=== PATIENT | female | born 1945 | race Caucasian/White ===

== ENCOUNTER → 2016-10-12 | Day surgery (SDC) | payer OTHER ==
[2016-10-11 14:49] VITALS: Ht 162.6 cm; Wt 57.3 kg
[~2016-10-12] VITALS: Ht 162.6 cm; Wt 57.3 kg
[~2016-10-12] MED LIST: ATOR10TA88 PO; BUPIVACAINE 0.25% 2.5MG/ML PF 10 ML VIAL INFIL ONE; DULO60CA44 PO; IOPAMIDOL INJ 61% 15 ML VIAL ONE; LIDOCAINE HCL 1% MPF 5 ML VIAL ONE; OMEG-10 PO
--- NOTE | 2016-10-12 14:09 | History & Physical Bridge - [place] ---
H&P Re-Evaluation Bridge Note: I have examined the patient, reviewed the History & Physical and in the interval since the performance of the History & Physical I have noted the following changes of clinical significance: No changes noted
[2016-10-12 14:28] VITALS: TEMP 36.5
--- NOTE | 2016-10-12 14:33 | Discharge Instructions ---
Discharge Instructions Visit Reason for Visit: Sacroiliitis Discharge Discharge Diagnosis / Problem: low back pain Discharge Goals Goal(s): Decrease discomfort, Improve function Activity Recommendations Activity Limitations: resume your previous activity Anesthesia . Post Anesthesia Instructions: If you have had General Anesthesia or IV Sedation: * Do not drive today. * Resume driving when surgeon permits. * Do not make important decisions or sign legal documents today. * Call surgeon for: 1. Temperature elevations greater than 101 degrees F. 2. Uncontrollable pain. 3. Excessive bleeding. 4. Persistent nausea and vomiting. 5. Medication intolerance (nausea, vomiting or rash). * For nausea and vomiting use only clear liquids such as: tea, soda, bouillon until nausea subsides, then gradually increase diet as tolerated. * If you have any concerns or questions, call your surgeon's office. If physician is unavailable and it is an emergency, call 911 or go to the nearest emergency room. . Diet Recommendations Recommended Home Diet: resume previous diet Procedures Procedures Performed: Right Sacroiliac Joint Injection Pending Studies Studies pending at discharge: no Medical Emergencies . Who to Call and When: Medical Emergencies: If at any time you feel your situation is an emergency, please call 911 immediately. . Non-Emergent Contact Non-Emergency issues call your: Specialist . . "Provider Documentation" section prepared by Martin Farah.
[2016-10-12 14:38] VITALS: BP 125/65; PULSE 68; O2SAT 96
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
== END | disposition home or self-care (01) ==
LOC: X.SURG 13:43
PROVIDERS: ATTEND Physical Medicine & Rehabilitation
DX: M46.1 Sacroiliitis, not elsewhere classified (principal); Z98.890 Other specified postprocedural states

== ENCOUNTER → 2016-11-21 | Outpatient (CLI) | payer OTHER ==
[~2016-11-21] MED LIST changes: -BUPIVACAINE 0.25% 2.5MG/ML PF 10 ML VIAL INFIL ONE; -IOPAMIDOL INJ 61% 15 ML VIAL ONE; -LIDOCAINE HCL 1% MPF 5 ML VIAL ONE
--- NOTE | 2016-11-21 15:57 | DIAGNOSTIC IMAGING REPORT ---
3 phase whole body bone scan BONE SCAN 3PHASE WHOLE BODY CLINICAL HISTORY: M54.5 pain TECHNIQUE: The study is performed in multiple phase fashion after the administration of 25.8 mCi technetium 99m MDP. Findings: Initial/vascular flow images are unremarkable. No area of significant hyperemia is identified. Bilateral renal activity is present. Findings of minimal degenerative activity of the knees, first metatarsophalangeal joints of the toes, as well as acromioclavicular joints. There is no evidence for bony metastatic process. There may be a small bladder diverticulum on the right lateral aspect of the bladder. There is no evidence for abnormal soft tissue activity characteristics. COMPARISON STUDY: None IMPRESSION: Minimal scattered degenerative activity within the shoulders hips and knees and feet. Otherwise negative exam Electronically signed by: Maninder Ayala M.D. 11/21/2016 3:56 PM Dictated Date/Time: 11/21/2016 3:53 PM
== END | disposition home or self-care (01) ==
LOC: C.NUCL 11:03
PROVIDERS: ATTEND Physical Medicine & Rehabilitation
DX: M54.5 Low back pain (principal)

== ENCOUNTER → 2016-12-06 | Outpatient (CLI) | payer OTHER ==
[~2016-12-06] MED LIST changes: +ATOR10TA82 PO; -ATOR10TA88 PO
--- NOTE | 2016-12-06 13:51 | DIAGNOSTIC IMAGING REPORT ---
MRI LUMBAR SPINE W/O CONTRAST CLINICAL HISTORY: Low back pain with right leg radiculopathy TECHNIQUE: Sagittal and axial T1, T2 and STIR images were obtained. COMPARISON STUDY: No previous studies for comparison. OBSERVATIONS: The vertebral bodies and posterior elements appear intact. There is no abnormal bony signal present to suggest a marrow replacement process. L1-2: No disc protrusions or extrusions. No evidence of spinal canal or neural foraminal compromise. L2-3: No disc protrusions or extrusions. No evidence of spinal canal or neural foraminal compromise. L3-4: There is a small right posterior lateral disc protrusion with minimal thecal sac impression. There is no significant foraminal narrowing L4-5: No disc protrusions or extrusions. No evidence of spinal canal or neural foraminal compromise. L5-S1: There is a small central disc protrusion. There is no significant thecal sac deformity. There is no spinal or foraminal stenosis. The conus medullaris and cauda equina appear normal. IMPRESSION: 1. Small right posterior lateral disc protrusion at the L3-4 level 2. Small central disc protrusion at the L5-S1 level. Electronically signed by: Scott June M.D. 12/06/2016 1:49 PM Dictated Date/Time: 12/06/2016 1:46 PM
== END | disposition home or self-care (01) ==
LOC: C.MRI 09:20
PROVIDERS: ATTEND Physical Medicine & Rehabilitation
DX: M54.16 Radiculopathy, lumbar region (principal); M51.27 Other intervertebral disc displacement, lumbosacral region

== ENCOUNTER → 2017-01-11 | Day surgery (SDC) | payer OTHER ==
[~2017-01-11] VITALS: Ht 162.6 cm; Wt 57.7 kg
[~2017-01-11] MED LIST changes: +IOPAMIDOL INJ 61% 15 ML VIAL ONE; +LIDOCAINE HCL 1% MPF 5 ML VIAL ONE; +SODIUM CHLORIDE 0.9% INJ 10 ML VIAL ONE
[2017-01-11 13:29] VITALS: Ht 162.6 cm; Wt 57.7 kg
--- NOTE | 2017-01-11 14:56 | Discharge Instructions ---
Discharge Instructions Date of Service January 11, 2017. Visit Reason for Visit: Lumbar Radiculopathy Discharge Discharge Diagnosis / Problem: low back pain with thigh pain Discharge Goals Goal(s): Decrease discomfort, Improve function Activity Recommendations Activity Limitations: resume your previous activity Anesthesia . Post Anesthesia Instructions: If you have had General Anesthesia or IV Sedation: * Do not drive today. * Resume driving when surgeon permits. * Do not make important decisions or sign legal documents today. * Call surgeon for: 1. Temperature elevations greater than 101 degrees F. 2. Uncontrollable pain. 3. Excessive bleeding. 4. Persistent nausea and vomiting. 5. Medication intolerance (nausea, vomiting or rash). * For nausea and vomiting use only clear liquids such as: tea, soda, bouillon until nausea subsides, then gradually increase diet as tolerated. * If you have any concerns or questions, call your surgeon's office. If physician is unavailable and it is an emergency, call 911 or go to the nearest emergency room. . Diet Recommendations Recommended Home Diet: resume previous diet Procedures Procedures Performed: LUMBAR EPIDURAL STEROID INJECTION Pending Studies Studies pending at discharge: no Medical Emergencies . Who to Call and When: Medical Emergencies: If at any time you feel your situation is an emergency, please call 911 immediately. . Non-Emergent Contact Non-Emergency issues call your: Specialist . . "Provider Documentation" section prepared by Martin Farah. .
[2017-01-11 14:58] VITALS: TEMP 36.8
[2017-01-11 15:02] VITALS: BP 122/74; PULSE 72; O2SAT 96
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
== END | disposition home or self-care (01) ==
LOC: X.SURG 13:17
PROVIDERS: ATTEND Physical Medicine & Rehabilitation
DX: M51.17 Intervertebral disc disorders with radiculopathy, lumbosacral region (principal)

== ENCOUNTER 2022-01-12 14:44 | Inpatient (IN) ==
[2022-01-12 15:37] LABS: Appearance Urine Clear (Clear); Bacteria Urine Automated Negative (Negative); Bilirubin Urine Negative (Negative); Blood Urine Negative (Negative); Cast Urine Automated 0 /lpf (0-5); Color Urine Yellow; Glucose Urine UA Negative (Negative); Ketones Urine Negative (Negative); Leukocyte Esterase Urine 2+ (Negative); Nitrite Urine Negative (Negative); Protein Urine Negative (Negative); RBC Urine Automated 0-4 /hpf (0-4); Specific Gravity Urine 1.009 (1.000-1.030); Urobilinogen Urine Negative (Negative); pH Urine 6.5 (4.5-7.5)
[2022-01-12 15:51] LABS: Basophils # (auto) 0.01 K/uL (0-0.2); Basophils % (auto) 0.2 %; Eosinophils # (auto) 0.05 K/uL (0-0.5); Eosinophils % (auto) 0.8 %; Hematocrit (blood only) 41.6 % (37-47); Hemoglobin 14.2 g/dL (12.0-16.0); Immature Granulocytes # (auto) 0.01 K/uL (0.00-0.02); Immature Granulocytes % (auto) 0.2 %; Lymphocytes # (auto) 1.26 K/uL (1.2-3.4); Lymphocytes % (auto) 19.5 %; Mean Corpuscular Hemoglobin 32.8 pg (25-34); Mean Corpuscular Hgb Conc 34.1 g/dL (32-36); Mean Corpuscular Volume 96.1 fL (80-100); Mean Platelet Volume 10.1 fL (7.4-10.4); Monocytes # (auto) 0.64 K/uL (0.11-0.59); Monocytes % (auto) 9.9 %; Neutrophils # (auto) 4.48 K/uL (1.4-6.5); Neutrophils % (auto) 69.4 %; Platelet Count 348 K/uL (130-400); RDW Coefficient of Variation 12.3 % (11.5-14.5); RDW Standard Deviation 43.5 fL (36.4-46.3); Red Blood Count 4.33 M/uL (4.2-5.4); White Blood Count 6.45 K/uL (4.8-10.8)
[2022-01-12 16:31] LABS: Albumin Globulin Ratio 1.7 (0.9-2); Albumin Level 4.3 gm/dl (3.4-5.0); BUN Creatinine Ratio 14.6 (10-20); Bilirubin,Total 0.6 mg/dl (0.2-1.0); Calcium 9.5 mg/dl (8.5-10.1); Creatinine Clr Calc Pharmacy 52.4 ml/min; Est GFR (African American) 81.1 ml/min; Globulin 2.6 gm/dl (2.5-4.0); Potassium 3.7 mmol/L (3.5-5.1); Total Protein 6.9 gm/dl (6.0-8.3)
[2022-01-12 16:36] LABS: Acetaminophen < 3 ug/ml (10-30); Salicylate < 3.0 mg/dl (3.0-30)
[2022-01-12] MEDS ORDERED: ALPRAZolam 0.5 MG TABLET PO PRN (17:41)
[2022-01-12 18:03] LABS: Amphetamines+Metham, Urine Neg (Neg); Barbiturates, Urine Neg (Neg); Benzodiazepine, Urine Pos (Neg); Cocaine, Urine Neg (Neg); MDMA (Ecstacy), Urine Neg (Neg); Methadone, Urine Neg (Neg); Opiate, Urine Neg (Neg); Phencyclidine, Urine Neg (Neg)
--- NOTE | 2022-01-12 19:20 | Emergency Department Note ---
Impression & Plan Depression, Suicidal ideation ED Provider Note NAME: MARTHA AWAN AGE: 76 SEX: F ARRIVES VIA: Walk-In INFORMANT: Patient, ED PROVIDER(S): Dylan Palma MD CHIEF COMPLAINT: Depression, SI PLAN: Disposition: Inpatient psychiatric referral. MEDICAL DECISION MAKING: The patient is a pleasant 76-year-old woman with a past medical history of anxiety and depression who presents to the emergency department accompanied by her , referred by her psychiatrist and therapist for worsening depression and suicidal ideation that has been worsening over the past several weeks. Patient reports she feels hopeless and has frequent thoughts of not wanting to be alive. She has thought about overdosing on medications but has not considered a specific plan to do so. She is interested and inpatient treatment as she wants to turn her depression around. She denies any recent fevers, chills, cough, congestion, GI or symptoms. On arrival, the patient is melancholy appearing with no distress, afebrile stable vital signs. She has a flat affect. She has slow motor movements. She reports depression, hopelessness, intermittent suicidal ideation. She denies auditory hallucinations. She reports loss of interest in any activities she used to enjoy. EKG without overt acute ischemia. WBC, H/H and platelets within normal limits. Chemistry without metabolic acidosis. Electrolytes LFTs are unremarkable. TSH within normal limits. UA without convincing evidence of infection as epithelial cells are present and patient denies urinary symptoms. Urine drug screen was positive for benzodiazepines in the setting of being on Xanax and recent Klonopin. Covid-19 RNA, NAAT negative. The patient was medically cleared. Referral made to . Patient was accepted. 201 signed. Triage Nursing notes reviewed and agree them. Prior medical records reviewed Vital Signs: reviewed and remarkable for no significant abnormalities Differential diagnosis: Mood disorder, infection, hypoglycemia, electrolyte abnormalities, cardiac sources, intracerebral event, toxicologic, trauma, neurologic, as well as other pathologies. ER treatment provided: See below. Diagnostics interpreted by me: ECG: NSR, 62 bpm, no ectopy, no overt ST elevation or depression. QTC 408. QRS 68. Laboratory studies: See below HPI: The patient is a pleasant 76-year-old woman with a past medical history of anxiety and depression who presents to the emergency department accompanied by her , referred by her psychiatrist and therapist for worsening depression and suicidal ideation that has been worsening over the past several weeks. Patient reports she feels hopeless and has frequent thoughts of not wanting to be alive. She has thought about overdosing on medications but has not considered a specific plan to do so. She is interested and inpatient treatment as she wants to turn her depression around. She denies any recent fevers, chills, cough, congestion, GI or symptoms. ROS: See above HPI for pertinent positives & negatives. A total of 10 systems reviewed and were otherwise negative. VITALS:See Below PHYSICAL EXAMINATION: GENERAL: Awake, alert, Melancholy-appearing, in no distress HENT: Normocephalic, atraumatic. Oropharynx unremarkable. EYES: Normal conjunctiva. Sclera non-icteric. NECK: Supple. No nuchal rigidity. FROM. No JVD. RESPIRATORY: Clear to auscultation. CARDIAC: Regular rate, normal rhythm. Extremities warm and well perfused. Pulses equal. ABDOMEN: Soft, non-distended. No tenderness to palpation. No rebound or guarding. No masses. RECTAL: Deferred. MUSCULOSKELETAL: Chest examination reveals no tenderness. The back is symmetrical on inspection without obvious abnormality. There is no CVA tenderness to palpation. No joint edema. LOWER EXTREMITIES: Calves are equal size bilaterally and non-tender. No edema. No discoloration. NEURO: Normal sensorium. No sensory or motor deficits noted. SKIN: No rash or jaundice noted. PSYCH: Flat affect. She has slow motor movements. She reports depression, hopelessness, intermittent suicidal ideation. She denies auditory hallucinations. She reports loss of interest in any activities she used to enjoy. Dylan Palma MD Past Med/Surg History Medical History (Updated 01/13/22 @ 01:55 by Dylan Palma MD) Anxiety Depression Hypertension Family History Other Family history non-contributory Social History Smoking Status: Never smoker Preferred Language: Trinidadian Communication Ability: Effective Stars Coordinator Required: No Beliefs That Will Affect Care: None Feels Safe at Home: Yes Allergies Allergies Allergy/AdvReac Type Severity Reaction Status Date / Time adhesive Allergy Unknown WELTS Verified 01/11/17 13:27 No Known Drug Allergies Allergy Unknown . Verified 01/11/17 13:27 MOLDS Allergy Unknown . Uncoded 10/11/16 14:47 TREES Allergy Unknown . Uncoded 10/11/16 14:47 Home Meds Home Medications Medication Instructions Recorded Confirmed ATORVASTATIN (LIPITOR) 10 mg PO QAM #0 tab 08/18/16 01/12/22 alprazolam 0.5 mg tablet 0.5 mg PO Q8H PRN 01/12/22 01/12/22 aripiprazole 2 mg tablet 2 mg PO QAM 01/12/22 01/12/22 aripiprazole 5 mg tablet 5 mg PO QAM 01/12/22 01/12/22 losartan 25 mg tablet 25 mg PO DAILY 01/12/22 01/12/22 vortioxetine 10 mg tablet 10 mg PO QAM 01/12/22 01/12/22 (Trintellix) zolpidem 12.5 mg tablet,extended 12.5 mg PO HS 01/12/22 01/12/22 release,multiphase Results & Data (ED) Vital Signs Vital Signs - 24 hr 01/12/22 14:56 01/12/22 17:40 Temperature 36.9 C Temperature Source Oral Pulse Rate 70 Pulse Rate [Right Finger] 73 Pulse Rhythm Regular Pulse Rhythm [Right Finger] Regular Pulse Strength Normal Pulse Strength [Right Finger] Normal Respiratory Rate 18 16 Respiratory Effort / Characteristics Non-Labored Spontaneous Non-Labored Spontaneous Respiratory Depth Normal Normal Respiratory Pattern Regular Regular Blood Pressure 151/83 H Blood Pressure [Left Arm] 135/49 L Blood Pressure Mean 105 Blood Pressure Mean [Left Arm] 77 Blood Pressure Position Sitting Pulse Oximetry 97 98 Oxygen Delivery Method Room Air Room Air Sepsis Recent Fever Within 48 Hours No Sepsis New/Unexplained Change in Mental Status No Sepsis Action Taken by Nursing No Action Required Laboratory Data Attestation: I reviewed the patient's lab results. Result diagrams: 01/12/22 15:28 01/12/22 15:28 Lab Results 01/12/22 01/12/22 01/12/22 Range/Units 15:10 15:10 15:28 WBC 6.45 (4.8-10.8) K/uL RBC 4.33 (4.2-5.4) M/uL Hgb 14.2 (12.0-16.0) g/dL Hct 41.6 (37-47) % MCV 96.1 (80-100) fL MCH 32.8 (25-34) pg MCHC 34.1 (32-36) g/dL RDW Std Deviation 43.5 (36.4-46.3) fL RDW Coeff of Ilana 12.3 (11.5-14.5) % Plt Count 348 (130-400) K/uL MPV 10.1 (7.4-10.4) fL Immature Gran % (Auto) 0.2 % Neut % (Auto) 69.4 % Lymph % (Auto) 19.5 % Haskell % (Auto) 9.9 % Eos % (Auto) 0.8 % Baso % (Auto) 0.2 % Neut # (Auto) 4.48 (1.4-6.5) K/uL Lymph # (Auto) 1.26 (1.2-3.4) K/uL Haskell # (Auto) 0.64 H (0.11-0.59) K/uL Eos # (Auto) 0.05 (0-0.5) K/uL Baso # (Auto) 0.01 (0-0.2) K/uL Immature Gran # (Auto) 0.01 (0.00-0.02) K/uL Sodium (136-145) mmol/L Potassium (3.5-5.1) mmol/L Chloride (98-107) mmol/L Carbon Dioxide (21-32) mmol/L Anion Gap (3-11) BUN (6-23) mg/dl Creatinine (0.6-1.2) mg/dl Est Cr Clr Drug Dosing ml/min Est GFR ( Amer) ml/min Est GFR (Non-Af Amer) ml/min BUN/Creatinine Ratio (10-20) Glucose (70-99(Fasting)) mg/dl Calcium (8.5-10.1) mg/dl Total Bilirubin (0.2-1.0) mg/dl AST (13-39) U/L ALT (7-52) U/L Alkaline Phosphatase (34-104) U/L Total Protein (6.0-8.3) gm/dl Albumin (3.4-5.0) gm/dl Globulin (2.5-4.0) gm/dl Albumin/Globulin Ratio (0.9-2) TSH (0.300-4.500) uIu/ml Urine Color Yellow Urine Appearance Clear (Clear) Urine pH 6.5 (4.5-7.5) Ur Specific Fulton 1.009 (1.000-1.030) Urine Protein Negative (Negative) Urine Glucose (UA) Negative (Negative) Urine Ketones Negative (Negative) Urine Blood Negative (Negative) Urine Nitrite Negative (Negative) Urine Bilirubin Negative (Negative) Urine Urobilinogen Negative (Negative) Ur Leukocyte Esterase 2+ H (Negative) Urine WBC (Auto) 5-10 H (0-5) /hpf Urine RBC (Auto) 0-4 (0-4) /hpf U Hyaline Cast (Auto) 0 (0-5) /lpf U Epithel Cells (Auto) 10-20 H (0-5) /lpf Urine Bacteria (Auto) Negative (Negative) Salicylates (3.0-30) mg/dl Urine Opiates Screen Neg (Neg) Ur Methadone, Qual Neg (Neg) Acetaminophen (10-30) ug/ml Urine Barbiturates Neg (Neg) Ur Phencyclidine (PCP) Neg (Neg) U Amphetamin/Meth Scrn Neg (Neg) MDMA (Ecstasy) Screen Neg (Neg) U Benzodiazepines Scrn Pos H (Neg) Ur Cocaine Metabolite Neg (Neg) U Marijuana (THC) Screen Neg (Neg) Ethyl Alcohol mg/dL (<10.0) mg/dl SARS-CoV-2, RNA, NAAT (NEGATIVE) 01/12/22 01/12/22 01/12/22 Range/Units 15:28 15:28 15:28 WBC (4.8-10.8) K/uL RBC (4.2-5.4) M/uL Hgb (12.0-16.0) g/dL Hct (37-47) % MCV (80-100) fL MCH (25-34) pg MCHC (32-36) g/dL RDW Std Deviation (36.4-46.3) fL RDW Coeff of Ilana (11.5-14.5) % Plt Count (130-400) K/uL MPV (7.4-10.4) fL Immature Gran % (Auto) % Neut % (Auto) % Lymph % (Auto) % Haskell % (Auto) % Eos % (Auto) % Baso % (Auto) % Neut # (Auto) (1.4-6.5) K/uL Lymph # (Auto) (1.2-3.4) K/uL Haskell # (Auto) (0.11-0.59) K/uL Eos # (Auto) (0-0.5) K/uL Baso # (Auto) (0-0.2) K/uL Immature Gran # (Auto) (0.00-0.02) K/uL Sodium 139 (136-145) mmol/L Potassium 3.7 (3.5-5.1) mmol/L Chloride 103 (98-107) mmol/L Carbon Dioxide 29 (21-32) mmol/L Anion Gap 7 (3-11) BUN 12 (6-23) mg/dl Creatinine 0.82 (0.6-1.2) mg/dl Est Cr Clr Drug Dosing 52.4 ml/min Est GFR ( Amer) 81.1 ml/min Est GFR (Non-Af Amer) 70.0 ml/min BUN/Creatinine Ratio 14.6 (10-20) Glucose 98 (70-99(Fasting)) mg/dl Calcium 9.5 (8.5-10.1) mg/dl Total Bilirubin 0.6 (0.2-1.0) mg/dl AST 24 (13-39) U/L ALT 16 (7-52) U/L Alkaline Phosphatase 86 (34-104) U/L Total Protein 6.9 (6.0-8.3) gm/dl Albumin 4.3 (3.4-5.0) gm/dl Globulin 2.6 (2.5-4.0) gm/dl Albumin/Globulin Ratio 1.7 (0.9-2) TSH 2.982 (0.300-4.500) uIu/ml Urine Color Urine Appearance (Clear) Urine pH (4.5-7.5) Ur Specific F[place]on (1.000-1.030) Urine Protein (Negative) Urine Glucose (UA) (Negative) Urine Ketones (Negative) Urine Blood (Negative) Urine Nitrite (Negative) Urine Bilirubin (Negative) Urine Urobilinogen (Negative) Ur Leukocyte Esterase (Negative) Urine WBC (Auto) (0-5) /hpf Urine RBC (Auto) (0-4) /hpf U Hyaline Cast (Auto) (0-5) /lpf U Epithel Cells (Auto) (0-5) /lpf Urine Bacteria (Auto) (Negative) Salicylates < 3.0 L (3.0-30) mg/dl Urine Opiates Screen (Neg) Ur Methadone, Qual (Neg) Acetaminophen < 3 L (10-30) ug/ml Urine Barbiturates (Neg) Ur Phencyclidine (PCP) (Neg) U Amphetamin/Meth Scrn (Neg) MDMA (Ecstasy) Screen (Neg) U Benzodiazepines Scrn (Neg) Ur Cocaine Metabolite (Neg) U Marijuana (THC) Screen (Neg) Ethyl Alcohol mg/dL (<10.0) mg/dl SARS-CoV-2, RNA, NAAT (NEGATIVE) 01/12/22 01/12/22 Range/Units 15:28 15:34 WBC (4.8-10.8) K/uL RBC (4.2-5.4) M/uL Hgb (12.0-16.0) g/dL Hct (37-47) % MCV (80-100) fL MCH (25-34) pg MCHC (32-36) g/dL RDW Std Deviation (36.4-46.3) fL RDW Coeff of Ilana (11.5-14.5) % Plt Count (130-400) K/uL MPV (7.4-10.4) fL Immature Gran % (Auto) % Neut % (Auto) % Lymph % (Auto) % Haskell % (Auto) % Eos % (Auto) % Baso % (Auto) % Neut # (Auto) (1.4-6.5) K/uL Lymph # (Auto) (1.2-3.4) K/uL Haskell # (Auto) (0.11-0.59) K/uL Eos # (Auto) (0-0.5) K/uL Baso # (Auto) (0-0.2) K/uL Immature Gran # (Auto) (0.00-0.02) K/uL Sodium (136-145) mmol/L Potassium (3.5-5.1) mmol/L Chloride (98-107) mmol/L Carbon Dioxide (21-32) mmol/L Anion Gap (3-11) BUN (6-23) mg/dl Creatinine (0.6-1.2) mg/dl Est Cr Clr Drug Dosing ml/min Est GFR ( Amer) ml/min Est GFR (Non-Af Amer) ml/min BUN/Creatinine Ratio (10-20) Glucose (70-99(Fasting)) mg/dl Calcium (8.5-10.1) mg/dl Total Bilirubin (0.2-1.0) mg/dl AST (13-39) U/L ALT (7-52) U/L Alkaline Phosphatase (34-104) U/L Total Protein (6.0-8.3) gm/dl Albumin (3.4-5.0) gm/dl Globulin (2.5-4.0) gm/dl Albumin/Globulin Ratio (0.9-2) TSH (0.300-4.500) uIu/ml Urine Color Urine Appearance (Clear) Urine pH (4.5-7.5) Ur Specific F[place] (1.000-1.030) Urine Protein (Negative) Urine Glucose (UA) (Negative) Urine Ketones (Negative) Urine Blood (Negative) Urine Nitrite (Negative) Urine Bilirubin (Negative) Urine Urobilinogen (Negative) Ur Leukocyte Esterase (Negative) Urine WBC (Auto) (0-5) /hpf Urine RBC (Auto) (0-4) /hpf U Hyaline Cast (Auto) (0-5) /lpf U Epithel Cells (Auto) (0-5) /lpf Urine Bacteria (Auto) (Negative) Salicylates (3.0-30) mg/dl Urine Opiates Screen (Neg) Ur Methadone, Qual (Neg) Acetaminophen (10-30) ug/ml Urine Barbiturates (Neg) Ur Phencyclidine (PCP) (Neg) U Amphetamin/Meth Scrn (Neg) MDMA (Ecstasy) Screen (Neg) U Benzodiazepines Scrn (Neg) Ur Cocaine Metabolite (Neg) U Marijuana (THC) Screen (Neg) Ethyl Alcohol mg/dL < 10.0 (<10.0) mg/dl SARS-CoV-2, RNA, NAAT NEGATIVE (NEGATIVE) Administered Medications Hydroxyzine HCl (Hydroxyzine Hcl 25 Mg Tab) 25 mg PO Q4H PRN PRN Reason: Anxiety Stop: 02/11/22 20:26 Last Admin: 01/12/22 22:34 Dose: 25 mg Documented by: [id number] Zolpidem 12.5mg Er: Non-Formulary Patient's Own Med 1 ea PO HS RUDY Stop: 02/12/22 21:59 Last Admin: 01/12/22 22:29 Dose: 12.5 mg Documented by: [id number] Discontinued Medications Alprazolam (Alprazolam 0.5 Mg Tablet) 0.5 mg PO Q8H PRN PRN Reason: Anxiety Stop: 02/11/22 17:40 Last Admin: 01/12/22 17:48 Dose: 0.5 mg Documented by: [id number] Discharge Plan Visit Data Chief Complaint: Mental Health Evaluation Stated Complaint: MENTAL HEALTH, DEPRESSION ED Provider: Dylan Palma Discharge Problem: Depression, Suicidal ideation Patient Disposition: Admitted As Inpatient Discharge Instructions Interventions: ED Discharge Assessment Last Done: 01/12/22 20:27 Discharge Problem: Depression Qualifiers: Depression Type: unspecified Qualified Code(s): F32.A - Depression, unspecified
[2022-01-12] MEDS ORDERED: SODIUM CHLORIDE 0.65% NA SOLN 45 ML (OCEAN) PRN (20:27)
[2022-01-12] MEDS ORDERED: ALUMINUM/MAGNESIUM SUSP 30 ML UDC PO PRN (20:27)
[2022-01-12] MEDS ORDERED: ACETAMINOPHEN 325 MG TAB PO PRN (20:27)
[2022-01-12] MEDS ORDERED: BISMUTH SUBSALICYLATE LIQD 236 ML PO PRN (20:27)
[2022-01-12] MEDS ORDERED: MAGNESIUM HYDROXIDE SUSP 30 ML UDC PO PRN (20:27)
[2022-01-12] MEDS ORDERED: ZOLPIDEM TARTRATE 10 MG TAB PO PRN (20:30)
[2022-01-12] MEDS ORDERED: EXT PO SCH (21:00)
[2022-01-12] MEDS ORDERED: ZOLPIDEM 12.5 MG PO SCH (21:00)
[2022-01-12] MEDS: ZOLPIDEM 12.5 MG PO SCH (22:29)
[2022-01-12] MEDS: hydrOXYzine HCl 25 MG TAB PO PRN (22:34)
[2022-01-13] MEDS ORDERED: LOSARTAN POTASSIUM 25 MG TAB PO SCH (09:00)
[2022-01-13] MEDS ORDERED: ARIPiprazole 5 MG TAB PO SCH (09:00)
[2022-01-13] MEDS ORDERED: ATORVASTATIN 10 MG PO SCH (09:00)
[2022-01-13] MEDS ORDERED: VORTIOXETINE HYDROBROMIDE PO SCH ×2 (09:00)
[2022-01-13] MEDS ORDERED: ATORVASTATIN 10 MG TAB PO SCH (09:00)
--- NOTE | 2022-01-13 09:17 | History & Physical ---
Date of Service January 13, 2022 Impression / Recommendations Impression 76 yo female with ruminative geriatric depression with SI in the context of severe anxiety. Otherwise amazing healthy/mobile and appears much younger than stated age. Significant psychosocial stressors since Sep 2021 which patient is minimizing. It should be noted that she was taking 120 mg Cymbalta until just over 1 week ago at which time she took 60 mg for "january 2-3 days" then after a few days started Trintellix just a few days prior to admission. Reviewed with patient that her bodily sensation and worsening symptoms could be discontinuation syndrome and she stated all predate the med change. Reviewed that regardless there are often breakthrough symptoms during changes in antidepressants but was a rather aggressive cross taper given dose and length of time taking the medication. (1) Depression: Depression Type: unspecified Qualified Code(s): F32.A - Depression, unspecified (2) Anxiety: 01/13/22: The patient was admitted to the [facility] ([facility] unit) on q15 min checks (behavioral with suicide precautions) for safety. The patient will participate in group, recreational, and milieu therapies and will be offered additional individual and family sessions as clinically appropriate. Will continue Abilify 5 mg and check metabolic monitoring labs. No evidence of abnormal motor movements at baseline. Patient is agreeable to continue Trintellix trial. She has not been on Remeron in past which could be another augmentation strategy. Hope to minimize anticholinergic side effects of Vistaril so will offer Neurontin 100 mg q8 prn as a trial for anxiety at least short term. At this point she would prefer some standing Neurontin and tolerated 300 mg before. Will start BID Neurontin. Her outpatient psychiatrist does coordinate with a psychiatrist that prescribes Spravato and does TMS but he is unsure if patient will be in the area as reportedly has homes in [facility], [place] and [facility] but is also not sure it's indicated. Inventory Assets Strengths: intelligent, family support, longstanding relationship with a psychiatrist and therapist Needs: improving coping with anxiety Suicide Risk Level Suicide Risk Level: Moderate (q15 min suicide checks) Suicide Risk Level Comments: unable to contract outside of the hospital, no prior attempts, thoughts more passive on unit Risk Factors Assessment : Yes Do You Have Access To A Gun?: No (will confirm with ) Health Problems: No Mental Health Diagnoses: Yes Substance Use Disorders: No Previous Attempt: No Previous Psychiatric Hospitalization: No Protective Factors Assessment : Yes 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 Chief Complaint "There is just this constant feeling inside, I can't live with it anymore, nothing helps." History of Present Illness Patient presented to the ED at the direction of her outpatient psychiatrist and therapist. She has been having worsening of baseline anxiety for the past few weeks and rather persistent thoughts about , particularly worry about harming herself in the context of severe anxiety, like acting on thoughts to OD or jump from a balcony. She feels she "can't live like this." Recent addition of Trintellix and Xanax "do nothing". Her sleep remains largely intact with Ambien CR 12.5 mg daily. Appetite varies. She is less interested in reading and walking. She denies somatic preoccupation but is very med focussed, "on getting those neurotransmitters right." She minimizes any marital issues (report of divorce) as of 12 years is there and "not going anywhere." Her father and [id number] in the past several months (father in Sep 2021 around the same time she had marital issues) and her twin sister had a stroke. 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 She has 2 adult children from a previous marriage of >35 years. During the interview she repeatedly referred to her anxiety and nothing working but did not appear externally restless. Prn Vistaril this am with minimal benefit. Abilify dosing confirmed and ordered. She reports benzodiazepines are ineffective (Klonopin and Xanax) yet also requested. Reviewed fall risk in patients >65 and need for prior med list from Dr. Bah. It is not clear whether or not she wants to continue with Trintellix trial. The medication is non-formulary but she did bring in her belongings. Past Psychiatric History Current Psychiatric Diagnosis: MDD; JEAN Outpatient Services: Dr. Bah psychiatrist since 2003, therapist Allyn Younger CONTROL ROOM OPERATOR Previous Psych Admissions: denied Do You Have Access To A Gun?: No (will confirm with ) History of Previous Suicide Attempt: No Describe Attempts in the Past: None Past Medication Trials: Klonopin, Xanax, "a bunch of everything else", Abilify since Oct(5 mg max dose), Trintellix, Neurontin (only briefly for back pain, 300 mg TID; Pamelor around that time), Ambien, Cymbalta 120 (2nd trial [id number]), Lexapro (2011), Effexor XR 225 mg (2013), Zoloft 200 mg [id number]). Past Head Trauma/Neuro History History of Concussion/Seizure: Yes (ran into a wall, ?2019. Denies postconcussive symptoms.) Allergies Allergy/AdvReac Type Severity Reaction Status Date / Time adhesive Allergy Unknown WELTS Verified 01/11/17 13:27 No Known Drug Allergies Allergy Unknown . Verified 01/11/17 13:27 MOLDS Allergy Unknown . Uncoded 10/11/16 14:47 TREES Allergy Unknown . Uncoded 10/11/16 14:47 Home Medications Medication Instructions Recorded Confirmed Type ATORVASTATIN (LIPITOR) 10 mg PO QAM #0 tab 08/18/16 01/12/22 History alprazolam 0.5 mg tablet 0.5 mg PO Q8H PRN 01/12/22 01/12/22 History aripiprazole 2 mg tablet 2 mg PO QAM 01/12/22 01/12/22 History aripiprazole 5 mg tablet 5 mg PO QAM 01/12/22 01/12/22 History losartan 25 mg tablet 25 mg PO DAILY 01/12/22 01/12/22 History vortioxetine 10 mg tablet 10 mg PO QAM 01/12/22 01/12/22 History (Trintellix) zolpidem 12.5 mg tablet,extended 12.5 mg PO HS 01/12/22 01/12/22 History release,multiphase Family History Family History of: Doesn't Know Alcohol History Hx of Alcohol Use Over the Past 12 Months: No AUDIT Total Score: 0 Smoking Use Have You Smoked or Used Tobacco Products in the Last 30 Days: No Smoking Status: Never smoker Substance History Hx of Prescription Med Misuse Over the Past 12 Months: No Hx of Over the Counter Med Misuse Over the Past 12 Months: No Hx of Inhalent Misuse Over the Past 12 Months: No Hx of Organic Substance Use Over the Past 12 Months: No Hx of Illegal Substances/Street Drug Use Over Past 12 Months: No Problems as a Result of Past Substance Use: None Identified Personal History Living Arrangements: Home Highest Grade Completed: Graduate School Employment Status: Retired Marital Status: (second) Number Of Children: 2 (son and tiffani) Beliefs That Will Affect Care: None Current Legal Problems: No Hx Traumatic Life Events: No Patient History Medical History (Updated 01/13/22 @ 11:19 by Jovana Omalley MD) Anxiety Depression Hypertension Family History Other Family history non-contributory Social History Smoking Status: Never smoker Preferred Language: Turkish Communication Ability: Effective 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 Beliefs That Will Affect Care: None Feels Safe at Home: Yes Review of Systems Review of Systems: All systems reviewed & are unremarkable except as noted in HPI & below Physical Exam Psychiatric: Orientation: alert and oriented x 3 Apperance: appropriately dressed and appropriately groomed Eye Contact: good eye contact Motor Behavior: no abnormal motor movements Speech: normal rate/rhythm/volume of speech Affect: + depressed affect Mood: + depressed mood and + anxious mood Thought Process: linear/logical thought process and + perseveration Thought Content: reality based without delusions Suicidal Thoughts: denies suicidal plan and denies suicidal intent; + reports suicidal thoughts (passive on unit) Homicidal Thoughts: denies homicidal thoughts Hallucinations: no auditory hallucinations and no visual hallucinations Cognition: attention grossly intact and language grossly intact Estimated Intelligence: consistent with education level Insight: + limited insight Vital Signs (Past 24 Hours): Last Vital Signs Temp 36.4 C L 01/13/22 06:17 Pulse 65 01/13/22 06:18 Resp 16 01/13/22 06:17 BP 121/74 01/13/22 06:18 Pulse Ox 98 01/12/22 20:27 Exam Statement: A physical exam was performed in the ED by Dr. Palma for the purposes of medical clearance. I accept that physical as correct and adequate for the purposes of the inpatient physical exam. Results & Data ([facility]) Laboratory Results Laboratory Results - last 24 hr 01/12/22 01/12/22 01/12/22 15:10 15:10 15:10 WBC RBC Hgb Hct MCV MCH MCHC RDW Std Deviation RDW Coeff of Ilana Plt Count MPV Immature Gran % (Auto) Neut % (Auto) Lymph % (Auto) Casey % (Auto) Eos % (Auto) Baso % (Auto) Neut # (Auto) Lymph # (Auto) Casey # (Auto) Eos # (Auto) Baso # (Auto) Immature Gran # (Auto) Sodium Potassium Chloride Carbon Dioxide Anion Gap BUN Creatinine Est Cr Clr Drug Dosing Est GFR ( Amer) Est GFR (Non-Af Amer) BUN/Creatinine Ratio Glucose Calcium Total Bilirubin AST ALT Alkaline Phosphatase Total Protein Albumin Globulin Albumin/Globulin Ratio TSH Urine Color Yellow Urine Appearance Clear Urine pH 6.5 Ur Specific [place] 1.009 Urine Protein Negative Urine Glucose (UA) Negative Urine Ketones Negative Urine Blood Negative Urine Nitrite Negative Urine Bilirubin Negative Urine Urobilinogen Negative Ur Leukocyte Esterase 2+ H Urine WBC (Auto) 5-10 H Urine RBC (Auto) 0-4 U Hyaline Cast (Auto) 0 U Epithel Cells (Auto) 10-20 H Urine Bacteria (Auto) Negative Salicylates Urine Opiates Screen Neg Ur Methadone, Qual Neg Acetaminophen Urine Barbiturates Neg Ur Phencyclidine (PCP) Neg U Amphetamin/Meth Scrn Neg MDMA (Ecstasy) Screen Neg U OH-Alprazolam Confrm Pending U Benzodiazepines Scrn Pos H 7-Amino Clonazepam Pending Ur Nordiazepam Confirm Pending U OH-ethylflurazepam Pending U Lorazepam Cnf GC/MS Pending U Oxazepam Confm GC/MS Pending Ur Temazepam Confirm Pending U OH-Triazolam Confirm Pending U OH-Midazolam Confirm Pending Ur Cocaine Metabolite Neg U Marijuana (THC) Screen Neg Drug Screen Comment Pending Ethyl Alcohol mg/dL SARS-CoV-2, RNA, NAAT 01/12/22 01/12/22 01/12/22 15:28 15:28 15:28 WBC 6.45 RBC 4.33 Hgb 14.2 Hct 41.6 MCV 96.1 MCH 32.8 MCHC 34.1 RDW Std Deviation 43.5 RDW Coeff of Ilana 12.3 Plt Count 348 MPV 10.1 Immature Gran % (Auto) 0.2 Neut % (Auto) 69.4 Lymph % (Auto) 19.5 Casey % (Auto) 9.9 Eos % (Auto) 0.8 Baso % (Auto) 0.2 Neut # (Auto) 4.48 Lymph # (Auto) 1.26 Casey # (Auto) 0.64 H Eos # (Auto) 0.05 Baso # (Auto) 0.01 Immature Gran # (Auto) 0.01 Sodium 139 Potassium 3.7 Chloride 103 Carbon Dioxide 29 Anion Gap 7 BUN 12 Creatinine 0.82 Est Cr Clr Drug Dosing 52.4 Est GFR ( Amer) 81.1 Est GFR (Non-Af Amer) 70.0 BUN/Creatinine Ratio 14.6 Glucose 98 Calcium 9.5 Total Bilirubin 0.6 AST 24 ALT 16 Alkaline Phosphatase 86 Total Protein 6.9 Albumin 4.3 Globulin 2.6 Albumin/Globulin Ratio 1.7 TSH 2.982 Urine Color Urine Appearance Urine pH Ur Specific [place] Urine Protein Urine Glucose (UA) Urine Ketones Urine Blood Urine Nitrite Urine Bilirubin Urine Urobilinogen Ur Leukocyte Esterase Urine WBC (Auto) Urine RBC (Auto) U Hyaline Cast (Auto) U Epithel Cells (Auto) Urine Bacteria (Auto) Salicylates Urine Opiates Screen Ur Methadone, Qual Acetaminophen Urine Barbiturates Ur Phencyclidine (PCP) U Amphetamin/Meth Scrn MDMA (Ecstasy) Screen U OH-Alprazolam Confrm U Benzodiazepines Scrn 7-Amino Clonazepam Ur Nordiazepam Confirm U OH-ethylflurazepam U Lorazepam Cnf GC/MS U Oxazepam Confm GC/MS Ur Temazepam Confirm U OH-Triazolam Confirm U OH-Midazolam Confirm Ur Cocaine Metabolite U Marijuana (THC) Screen Drug Screen Comment Ethyl Alcohol mg/dL SARS-CoV-2, RNA, NAAT 01/12/22 01/12/22 01/12/22 15:28 15:28 15:34 WBC RBC Hgb Hct MCV MCH MCHC RDW Std Deviation RDW Coeff of Ilana Plt Count MPV Immature Gran % (Auto) Neut % (Auto) Lymph % (Auto) Casey % (Auto) Eos % (Auto) Baso % (Auto) Neut # (Auto) Lymph # (Auto) Casey # (Auto) Eos # (Auto) Baso # (Auto) Immature Gran # (Auto) Sodium Potassium Chloride Carbon Dioxide Anion Gap BUN Creatinine Est Cr Clr Drug Dosing Est GFR ( Amer) Est GFR (Non-Af Amer) BUN/Creatinine Ratio Glucose Calcium Total Bilirubin AST ALT Alkaline Phosphatase Total Protein Albumin Globulin Albumin/Globulin Ratio TSH Urine Color Urine Appearance Urine pH Ur Specific [place] Urine Protein Urine Glucose (UA) Urine Ketones Urine Blood Urine Nitrite Urine Bilirubin Urine Urobilinogen Ur Leukocyte Esterase Urine WBC (Auto) Urine RBC (Auto) U Hyaline Cast (Auto) U Epithel Cells (Auto) Urine Bacteria (Auto) Salicylates < 3.0 L Urine Opiates Screen Ur Methadone, Qual Acetaminophen < 3 L Urine Barbiturates Ur Phencyclidine (PCP) U Amphetamin/Meth Scrn MDMA (Ecstasy) Screen U OH-Alprazolam Confrm U Benzodiazepines Scrn 7-Amino Clonazepam Ur Nordiazepam Confirm U OH-ethylflurazepam U Lorazepam Cnf GC/MS U Oxazepam Confm GC/MS Ur Temazepam Confirm U OH-Triazolam Confirm U OH-Midazolam Confirm Ur Cocaine Metabolite U Marijuana (THC) Screen Drug Screen Comment Ethyl Alcohol mg/dL < 10.0 SARS-CoV-2, RNA, NAAT NEGATIVE Current Inpatient Medications Current Inpatient Medications: Current Inpatient Medications Acetaminophen (Acetaminophen 325 Mg Tab) 650 mg PO Q4H PRN PRN Reason: Headache or Minor Fever Stop: 02/11/22 20:26 Al Hydrox/Mg Hydrox/Simethicone (Aluminum/Magnesium Susp 30 Ml Udc) 30 ml PO Q4H PRN PRN Reason: GI Upset Stop: 02/11/22 20:26 Bismuth Subsalicylate (Bismuth Subsalicylate Liqd 236 Ml) 15 ml PO PRN PRN PRN Reason: Loose Stool Stop: 02/11/22 20:26 Hydroxyzine HCl (Hydroxyzine Hcl 25 Mg Tab) 50 mg PO HSZ PRN PRN Reason: Insomnia Stop: 02/11/22 20:26 Hydroxyzine HCl (Hydroxyzine Hcl 25 Mg Tab) 25 mg PO Q4H PRN PRN Reason: Anxiety Stop: 02/11/22 20:26 Last Admin: 01/12/22 22:34 Dose: 25 mg Documented by: Magnesium Hydroxide (Magnesium Hydroxide Susp 30 Ml Udc) 30 ml PO DAILY PRN PRN Reason: Constipation Stop: 02/11/22 20:26 Zolpidem 12.5mg Er: Non-Formulary Patient's Own Med 1 ea PO HS RUDY Stop: 02/12/22 21:59 Last Admin: 01/12/22 22:29 Dose: 12.5 mg Documented by: Sodium Chloride (Sodium Chloride 0.65% Na Soln 45 Ml ([place])) 1 - 2 sprays NA PRN PRN PRN Reason: Nasal Dryness/Congestion Stop: 02/11/22 20:26
[2022-01-13] MEDS: hydrOXYzine HCl 25 MG TAB PO PRN ×2 (09:51→21:15)
[2022-01-13] MEDS: ARIPiprazole 5 MG TAB PO SCH (11:14)
[2022-01-13] MEDS ORDERED: GABAPENTIN 100 MG CAP PO PRN (11:18)
[2022-01-13] MEDS: VORTIOXETINE HYDROBROMIDE PO SCH (12:30)
[2022-01-13] MEDS: ATORVASTATIN 10 MG TAB PO SCH (12:31)
[2022-01-13] MEDS: LOSARTAN POTASSIUM 25 MG TAB PO SCH (12:32)
[2022-01-13] MEDS: GABAPENTIN 300 MG CAP PO SCH ×2 (12:37→17:15)
--- NOTE | 2022-01-13 19:33 | Electrocardiogram Report ---
Test Reason : Blood Pressure : / mmHG Vent. Rate : 062 BPM Atrial Rate : 062 BPM P-R Int : 154 ms QRS Dur : 068 ms QT Int : 402 ms P-R-T Axes : 070 027 058 degrees QTc Int : 408 ms Normal sinus rhythm Normal ECG No previous ECGs available Confirmed by Fredis Hooks ([id number]) on 01/13/2022 7:33:19 PM Referred By: REFERRED SELF Confirmed By:Fredis Hooks
[2022-01-13] MEDS: ZOLPIDEM 12.5 MG PO SCH (21:12)
--- NOTE | 2022-01-14 09:21 | Psychiatric Progress Note ---
Date of Service January 14, 2022 Impression / Recommendations Impression 76 yo female with ruminative geriatric depression with SI in the context of severe anxiety. Otherwise amazing healthy/mobile and appears much younger than stated age. Significant psychosocial stressors since Sep 2021 which patient is minimizing. It should be noted that she was taking 120 mg Cymbalta until just over 1 week ago at which time she took 60 mg for "january 2-3 days" then after a few days started Trintellix just a few days prior to admission. The patient is deemed unstable and requires psychiatric hospitalization for diagnostic clarification, safety and stabilization, medication management and development of further coping skills. MNPR due to severe anxiety with inability to tolerate a roommate/ additional environmental stressors. 01/14/22: Ongoing severe anxiety and intermittent SI. Discussed potential medication options to help with this including possibility that abilify is causing akathisia versus ongoing MDD with anxious distress leading to restlessness. Tolerating gabapentin and wants to continue with dose titration. Discussed options for akathisia including trial of lower dose of abilify which she consents to and option to try propranolol prn for possible akathisia (reviewed side effects including but not limited to low BP, syncope). Reviewed interim progress from Dr. Omalley's notes. (1) Depression: (2) Anxiety: (3) Recurrent severe major depressive disorder with anxiety: 01/14/22: Increase gabapentin to 300mg TID. Decrease abilify to 2.5 mg qAM. Added propranolol 10mg BID prn for akathisia. Fasting labs in the AM for lipid profile and glucose. 01/13/22: The patient was admitted to the [facility] on q15 min checks (behavioral with suicide precautions) for safety. The patient will participate in group, recreational, and milieu therapies and will be offered additional individual and family sessions as clinically appropriate. Will continue Abilify 5 mg and check metabolic monitoring labs. No evidence of abnormal motor movements at baseline. Patient is agreeable to continue Trintellix trial. She has not been on Remeron in past which could be another augmentation strategy. Hope to minimize anticholinergic side effects of Vistaril so will offer Neurontin 100 mg q8 prn as a trial for anxiety at least short term. At this point she would prefer some standing Neurontin and tolerated 300 mg before. Will start BID Neurontin. Her outpatient psychiatrist does coordinate with a psychiatrist that prescribes Spravato and does TMS but he is unsure if patient will be in the area as reportedly has homes in [facility], [place] and [facility] but is also not sure it's indicated. Inventory Assets Strengths: intelligent, family support, longstanding relationship with a psychiatrist and therapist Needs: improving coping with anxiety Suicide Risk Level Suicide Risk Level: Moderate (q15 min suicide checks) Suicide Risk Level Comments: unable to contract outside of the hospital, no prior attempts, thoughts more passive on unit but continues to feel helplessness and hopeless in context of depression and severe anxiety Risk Factors Assessment : Yes Do You Have Access To A Gun?: No Health Problems: No Mental Health Diagnoses: Yes Substance Use Disorders: No Previous Attempt: No Previous Psychiatric Hospitalization: No Protective Factors Assessment : Yes 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 Chief Complaint "I just keep living like this". Review of Systems Sleep Information Total Hours of Sleep: 7.5 Meal Information Percent Meal Consumed - Breakfast: 50 Percent Meal Consumed - Lunch: 100 Percent Meal Consumed - Dinner: 100 Subjective Subjective Patient was seen & assessed and interval progress reviewed with treatment team nursing and social work. Martha endorses ongoing severe anxiety that she feels is ruminative thoughts as well as a physical sense of restlessness. She has noticed maybe "slight" reduction in anxiety with gabapentin. No side effects from this. Denies any side effects from any of her other medications. Found that Vistaril helped with sleep. Continues to have intermittent SI due to fears that the anxiety will never get better. Physical Exam Psychiatric Orientation: alert and oriented x 3 Apperance: appropriately dressed and appropriately groomed Eye Contact: good eye contact Motor Behavior: no abnormal motor movements Speech: normal rate/rhythm/volume of speech Affect: + depressed affect and + anxious affect Mood: + depressed mood and + anxious mood Thought Process: linear/logical thought process and + perseveration Thought Content: reality based without delusions Suicidal Thoughts: denies suicidal plan and denies suicidal intent; + reports suicidal thoughts (passive on unit) Homicidal Thoughts: denies homicidal thoughts Hallucinations: no auditory hallucinations and no visual hallucinations Cognition: attention grossly intact and language grossly intact Estimated Intelligence: consistent with education level Insight: + limited insight Judgement: + fair judgement Vital Signs (Past 24 Hours) Last Vital Signs Temp 36.9 C 01/14/22 06:38 Pulse 66 01/14/22 06:40 Resp 18 01/14/22 06:38 BP 128/76 01/14/22 06:40 Pulse Ox 98 01/12/22 20:27 Results & Data ([facility]) Current Inpatient Medications Current Inpatient Medications: Current Inpatient Medications Acetaminophen (Acetaminophen 325 Mg Tab) 650 mg PO Q4H PRN PRN Reason: Headache or Minor Fever Stop: 02/11/22 20:26 Al Hydrox/Mg Hydrox/Simethicone (Aluminum/Magnesium Susp 30 Ml Udc) 30 ml PO Q4H PRN PRN Reason: GI Upset Stop: 02/11/22 20:26 Aripiprazole (Aripiprazole 5 Mg Tab) 5 mg PO QAM [facility] Stop: 02/12/22 10:44 Last Admin: 01/13/22 11:14 Dose: 5 mg Documented by: Atorvastatin Calcium (Atorvastatin 10 Mg Tab) 10 mg PO QAM RUDY Stop: 02/12/22 12:14 Last Admin: 01/13/22 12:31 Dose: 10 mg Documented by: Bismuth Subsalicylate (Bismuth Subsalicylate Liqd 236 Ml) 15 ml PO PRN PRN PRN Reason: Loose Stool Stop: 02/11/22 20:26 Gabapentin (Gabapentin 100 Mg Cap) 100 mg PO Q8 PRN PRN Reason: Anxiety Stop: 02/12/22 13:59 Gabapentin (Gabapentin 300 Mg Cap) 300 mg PO BIDM RUDY Stop: 02/12/22 11:59 Last Admin: 01/13/22 17:15 Dose: 300 mg Documented by: Hydroxyzine HCl (Hydroxyzine Hcl 25 Mg Tab) 50 mg PO HSZ PRN PRN Reason: Insomnia Stop: 02/11/22 20:26 Last Admin: 01/13/22 21:15 Dose: 50 mg Documented by: Hydroxyzine HCl (Hydroxyzine Hcl 25 Mg Tab) 25 mg PO Q4H PRN PRN Reason: Anxiety Stop: 02/11/22 20:26 Last Admin: 01/13/22 09:51 Dose: 25 mg Documented by: Losartan Potassium (Losartan Potassium 25 Mg Tab) 25 mg PO QAM RUDY Stop: 02/12/22 12:14 Last Admin: 01/13/22 12:32 Dose: 25 mg Documented by: Magnesium Hydroxide (Magnesium Hydroxide Susp 30 Ml Udc) 30 ml PO DAILY PRN PRN Reason: Constipation Stop: 02/11/22 20:26 Zolpidem 12.5mg Er: Non-Formulary Patient's Own Med 1 ea PO HS RUDY Stop: 02/12/22 21:59 Last Admin: 01/13/22 21:12 Dose: 12.5 mg Documented by: Sodium Chloride (Sodium Chloride 0.65% Na Soln 45 Ml ([place])) 1 - 2 sprays NA PRN PRN PRN Reason: Nasal Dryness/Congestion Stop: 02/11/22 20:26 Vortioxetine (Vortioxetine Hydrobromide) 1 ea PO QAM RUDY; Protocol Stop: 02/12/22 11:59 Last Admin: 01/13/22 12:30 Dose: 1 ea Documented by: Mental Health & Subst Abuse Tx Psychiatrist Name of Psychiatrist: Dr. Maninder Cabrera, Psychiatrist's Therapist Name of Therapist: Allyn Fay Therapist's Can Line Examiner Name of Can Line Examiner: None Post Discharge Appointments Contact Information Discharge Discharge Address: [address] [place] [address], [place], [place] (1) Depression Depression Type: unspecified Qualified Code(s): F32.A - Depression, unspecified
[2022-01-14] MEDS: VORTIOXETINE HYDROBROMIDE PO SCH (09:24)
[2022-01-14] MEDS: LOSARTAN POTASSIUM 25 MG TAB PO SCH (09:24)
[2022-01-14] MEDS: ARIPiprazole 5 MG TAB PO SCH (09:24)
[2022-01-14] MEDS: GABAPENTIN 300 MG CAP PO SCH ×3 (09:24→20:18)
[2022-01-14] MEDS: ATORVASTATIN 10 MG TAB PO SCH (09:24)
[2022-01-14] MEDS: hydrOXYzine HCl 25 MG TAB PO PRN ×3 (10:52→19:55)
[2022-01-14] MEDS: ZOLPIDEM 12.5 MG PO SCH (20:36)
[2022-01-15 08:34] LABS: Chol HDL Ratio 2.2 (0-5)
[2022-01-15] MEDS: ATORVASTATIN 10 MG TAB PO SCH (08:38)
[2022-01-15] MEDS: LOSARTAN POTASSIUM 25 MG TAB PO SCH (08:39)
[2022-01-15] MEDS: ARIPiprazole 5 MG TAB PO SCH (08:39)
[2022-01-15] MEDS: VORTIOXETINE HYDROBROMIDE PO SCH (08:40)
[2022-01-15] MEDS: GABAPENTIN 300 MG CAP PO SCH ×2 (08:40→14:03)
--- NOTE | 2022-01-15 08:59 | Psychiatric Progress Note ---
Date of Service January 15, 2022 Impression / Recommendations Impression 76 yo female with ruminative geriatric depression with SI in the context of severe anxiety. Otherwise amazing healthy/mobile and appears much younger than stated age. Significant psychosocial stressors since Sep 2021 which patient is minimizing. It should be noted that she was taking 120 mg Cymbalta until just over 1 week ago at which time she took 60 mg for "january 2-3 days" then after a few days started Trintellix just a few days prior to admission. The patient is deemed unstable and requires psychiatric hospitalization for diagnostic clarification, safety and stabilization, medication management and development of further coping skills. MNPR due to severe anxiety with inability to tolerate a roommate/ additional environmental stressors. 01/15/22: Ongoing severe anxiety, depression, periods of almost thought blocking due to this and intermittent SI. Increase gabapentin in ongoing effort to reduce anxiety and try to limit use of anticholinergic use. Fasting lipid panel and glucose reviewed and discussed with Martha-all within normal limits. Potential akathisia component remains unclear but will continue with lower dose abilify for now. (1) Depression: (2) Anxiety: (3) Recurrent severe major depressive disorder with anxiety: 01/15/22: Increase gabapetnin to 400mg TID. Continue with other medications and tx plan. 01/14/22: Increase gabapentin to 300mg TID. Decrease abilify to 2.5 mg qAM. Added propranolol 10mg BID prn for akathisia. Fasting labs in the AM for lipid profile and glucose. 01/13/22: The patient was admitted to the [facility] ([facility] mental health unit) on q15 min checks (behavioral with suicide precautions) for safety. The patient will participate in group, recreational, and milieu therapies and will be offered additional individual and family sessions as clinically appropriate. Will continue Abilify 5 mg and check metabolic monitoring labs. No evidence of abnormal motor movements at baseline. Patient is agreeable to continue Trintellix trial. She has not been on Remeron in past which could be another augmentation strategy. Hope to minimize anticholinergic side effects of Vistaril so will offer Neurontin 100 mg q8 prn as a trial for anxiety at least short term. At this point she would prefer some standing Neurontin and tolerated 300 mg before. Will start BID Neurontin. Her outpatient psychiatrist does coordinate with a psychiatrist that prescribes Spravato and does TMS but he is unsure if patient will be in the area as reportedly has homes in [facility], [place] and [facility] but is also not sure it's indicated. Inventory Assets Strengths: intelligent, family support, longstanding relationship with a psychiatrist and therapist Needs: improving coping with anxiety Suicide Risk Level Suicide Risk Level: Moderate (q15 min suicide checks) Suicide Risk Level Comments: unable to contract outside of the hospital, no prior attempts, thoughts more passive on unit but continues to feel helplessness and hopeless in context of depression and severe anxiety Risk Factors Assessment : Yes Do You Have Access To A Gun?: No Health Problems: No Mental Health Diagnoses: Yes Substance Use Disorders: No Previous Attempt: No Previous Psychiatric Hospitalization: No Protective Factors Assessment : Yes 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 Chief Complaint "I'm just trying to hang in there". Review of Systems Sleep Information Total Hours of Sleep: 9 Meal Information Percent Meal Consumed - Breakfast: 50 Percent Meal Consumed - Lunch: 100 Percent Meal Consumed - Dinner: 100 Subjective Subjective Patient was seen & assessed and interval progress reviewed with treatment team nursing and social work. Finding Vistaril helpful, taking a lot of prns. Participating well in groups and supporting peers. Remains very anxious and overwhelmed that she will never get better. Today endorses ongoing severe anxiety and depression. Continues to feel hopeless and paralyzed by her anxiety and depression. She found the higher dose of gabapentin helpful in combination with ambien and vistaril for sleep noting "I got a glimpse of this is what it normal feels like". No side effects from higher gabapentin dose. Can't tell so far if lower dose of abilify this morning has lead to any lessening of restlessness. Took prn propranolol just before our meeting to see if this offers any benefit. Physical Exam Psychiatric Orientation: alert and oriented x 3 Apperance: appropriately dressed and appropriately groomed Eye Contact: good eye contact Motor Behavior: no abnormal motor movements Speech: normal rate/rhythm/volume of speech Affect: + depressed affect and + anxious affect Mood: + depressed mood and + anxious mood Thought Process: linear/logical thought process and + perseveration Thought Content: reality based without delusions Suicidal Thoughts: denies suicidal plan and denies suicidal intent; + reports suicidal thoughts (passive on unit) Homicidal Thoughts: denies homicidal thoughts Hallucinations: no auditory hallucinations and no visual hallucinations Cognition: attention grossly intact and language grossly intact Estimated Intelligence: consistent with education level Insight: + limited insight Judgement: + fair judgement Vital Signs (Past 24 Hours) Last Vital Signs Temp 36.9 C 01/15/22 06:46 Pulse 76 01/15/22 06:47 Resp 18 01/15/22 06:46 BP 120/68 01/15/22 06:47 Pulse Ox 98 01/12/22 20:27 Results & Data ([facility]) Laboratory Results Laboratory Results - last 24 hr 01/15/22 08:01 Fasting Glucose 92 Triglycerides 76 Cholesterol 156 LDL Cholesterol, Calc 70 VLDL Cholesterol, Calc 15 HDL Cholesterol 71 Cholesterol/HDL Ratio 2.2 Current Inpatient Medications Current Inpatient Medications: Current Inpatient Medications Acetaminophen (Acetaminophen 325 Mg Tab) 650 mg PO Q4H PRN PRN Reason: Headache or Minor Fever Stop: 02/11/22 20:26 Al Hydrox/Mg Hydrox/Simethicone (Aluminum/Magnesium Susp 30 Ml Udc) 30 ml PO Q4H PRN PRN Reason: GI Upset Stop: 02/11/22 20:26 Aripiprazole (Aripiprazole 5 Mg Tab) 2.5 mg PO QAM [facility] Stop: 02/14/22 08:59 Last Admin: 01/15/22 08:39 Dose: 2.5 mg Documented by: Atorvastatin Calcium (Atorvastatin 10 Mg Tab) 10 mg PO QAM [facility] Stop: 02/12/22 12:14 Last Admin: 01/15/22 08:38 Dose: 10 mg Documented by: Bismuth Subsalicylate (Bismuth Subsalicylate Liqd 236 Ml) 15 ml PO PRN PRN PRN Reason: Loose Stool Stop: 02/11/22 20:26 Gabapentin (Gabapentin 100 Mg Cap) 100 mg PO Q8 PRN PRN Reason: Anxiety Stop: 02/12/22 13:59 Gabapentin (Gabapentin 300 Mg Cap) 300 mg PO TID [facility] Stop: 02/13/22 14:59 Last Admin: 01/15/22 08:40 Dose: 300 mg Documented by: Hydroxyzine HCl (Hydroxyzine Hcl 25 Mg Tab) 50 mg PO HSZ PRN PRN Reason: Insomnia Stop: 02/11/22 20:26 Last Admin: 01/13/22 21:15 Dose: 50 mg Documented by: Hydroxyzine HCl (Hydroxyzine Hcl 25 Mg Tab) 25 mg PO Q4H PRN PRN Reason: Anxiety Stop: 02/11/22 20:26 Last Admin: 01/14/22 19:55 Dose: 25 mg Documented by: Losartan Potassium (Losartan Potassium 25 Mg Tab) 25 mg PO QAM [facility] Stop: 02/12/22 12:14 Last Admin: 01/15/22 08:39 Dose: 25 mg Documented by: Magnesium Hydroxide (Magnesium Hydroxide Susp 30 Ml Udc) 30 ml PO DAILY PRN PRN Reason: Constipation Stop: 02/11/22 20:26 Zolpidem 12.5mg Er: Non-Formulary Patient's Own Med 1 ea PO HS [facility] Stop: 02/12/22 21:59 Last Admin: 01/14/22 20:36 Dose: 12.5 mg Documented by: Propranolol HCl (Propranolol Hcl 10 Mg Tab) 10 mg PO BID PRN PRN Reason: Anxiety/Agitation Stop: 02/13/22 20:59 Sodium Chloride (Sodium Chloride 0.65% Na Soln 45 Ml ([place])) 1 - 2 sprays NA PRN PRN PRN Reason: Nasal Dryness/Congestion Stop: 02/11/22 20:26 Vortioxetine (Vortioxetine Hydrobromide) 1 ea PO QAM [facility]; Protocol Stop: 02/12/22 11:59 Last Admin: 01/15/22 08:40 Dose: 1 ea Documented by: Mental Health & Subst Abuse Tx Psychiatrist Name of Psychiatrist: Dr. Maninder Cabrera, Psychiatrist's Psychiatric Appointment Comment: [facility] [place], [place] Therapist Name of Therapist: Allyn Graham RN, SCRAPER OPERATOR Counseling Therapist's Therapy Appointment Comment: [address] [facility], [address] [place] [address] Taxi Proprietor Name of Taxi Proprietor: None Post Discharge Appointments Contact Information Discharge Discharge Address: [address] [place] [address] [address], [place], [place] (1) Depression Depression Type: unspecified Qualified Code(s): F32.A - Depression, unspecified
[2022-01-15 09:31] LABS: 7-Aminoclonaz, Confirm 211 ng/mL (<25); Hydro-Alp Ur, GC/MS 268 ng/mL (<25); Hydroxyethylflurazepam, Conf NEGATIVE ng/mL (<50); Hydroxymidazolam Ur, GC/MS NEGATIVE ng/mL (<50); Hydroxytriazolam NEGATIVE ng/mL (<50); Lorazepam, Ur GC/MS NEGATIVE ng/mL (<50); Nordiazepam, Confirm NEGATIVE ng/mL (<50); Oxazepam Ur, GC/MS NEGATIVE ng/mL (<50); Temazepam, Confirm NEGATIVE ng/mL (<50)
[2022-01-15] MEDS: PROPRANOLOL HCL 10 MG TAB PO PRN (10:53)
[2022-01-15] MEDS: hydrOXYzine HCl 25 MG TAB PO PRN ×3 (12:54→20:34)
[2022-01-15] MEDS: GABAPENTIN 400 MG CAP PO SCH (20:33)
[2022-01-15] MEDS: ZOLPIDEM 12.5 MG PO SCH (21:00)
[2022-01-16] MEDS: ARIPiprazole 5 MG TAB PO SCH (08:41)
[2022-01-16] MEDS: ATORVASTATIN 10 MG TAB PO SCH (08:41)
[2022-01-16] MEDS: LOSARTAN POTASSIUM 25 MG TAB PO SCH (08:42)
[2022-01-16] MEDS: GABAPENTIN 400 MG CAP PO SCH ×2 (08:42→14:25)
[2022-01-16] MEDS: VORTIOXETINE HYDROBROMIDE PO SCH (08:43)
--- NOTE | 2022-01-16 08:45 | Psychiatric Progress Note ---
Date of Service January 16, 2022 Impression / Recommendations Impression 76 yo female with ruminative geriatric depression with SI in the context of severe anxiety. Otherwise amazing healthy/mobile and appears much younger than stated age. Significant psychosocial stressors since Sep 2021 which patient is minimizing. It should be noted that she was taking 120 mg Cymbalta until just over 1 week ago at which time she took 60 mg for "january 2-3 days" then after a few days started Trintellix just a few days prior to admission. The patient is deemed unstable and requires psychiatric hospitalization for diagnostic clarification, safety and stabilization, medication management and development of further coping skills. MNPR due to severe anxiety with inability to tolerate a roommate/ additional environmental stressors. 01/16/22: Ongoing severe anxiety, depression and intermittent SI. Potential slight response to gabapentin, tolerating so will continue with dose titration. Reviewed risks vs benefits given her age but she would prefer ongoing titration given impairment and level of distress from anxiety. I also participated in family meeting to answer questions about medications and tx plans for 20 minutes. (1) Depression: (2) Anxiety: (3) Recurrent severe major depressive disorder with anxiety: 01/16/22: Increase gabapentin to 600mg TID. Continue with other meds and tx plan. Family meeting today. 01/15/22: Increase gabapentin to 400mg TID. Continue with other medications and tx plan. 01/14/22: Increase gabapentin to 300mg TID. Decrease abilify to 2.5 mg qAM. Added propranolol 10mg BID prn for akathisia. Fasting labs in the AM for lipid profile and glucose. 01/13/22: The patient was admitted to the [facility] ([facility]) on q15 min checks (behavioral with suicide precautions) for safety. The patient will participate in group, recreational, and milieu therapies and will be offered additional individual and family sessions as clinically appropriate. Will continue Abilify 5 mg and check metabolic monitoring labs. No evidence of abnormal motor movements at baseline. Patient is agreeable to continue Trintellix trial. She has not been on Remeron in past which could be another augmentation strategy. Hope to minimize anticholinergic side effects of Vistaril so will offer Neurontin 100 mg q8 prn as a trial for anxiety at least short term. At this point she would prefer some standing Neurontin and tolerated 300 mg before. Will start BID Neurontin. Her outpatient psychiatrist does coordinate with a psychiatrist that prescribes Spravato and does TMS but he is unsure if patient will be in the area as reportedly has homes in [facility], [place] and [facility] but is also not sure it's indicated. Inventory Assets Strengths: intelligent, family support, longstanding relationship with a psychiatrist and therapist Needs: improving coping with anxiety Suicide Risk Level Suicide Risk Level: Moderate (q15 min suicide checks) Suicide Risk Level Comments: unable to contract outside of the hospital, no prior attempts, thoughts more passive on unit but continues to feel helplessness and hopeless in context of depression and severe anxiety Risk Factors Assessment : Yes Do You Have Access To A Gun?: No Health Problems: No Mental Health Diagnoses: Yes Substance Use Disorders: No Previous Attempt: No Previous Psychiatric Hospitalization: No Protective Factors Assessment : Yes 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 Chief Complaint "I feel maybe a tiny bit better today". Review of Systems Sleep Information Total Hours of Sleep: 7.5 Meal Information Percent Meal Consumed - Breakfast: 50 Percent Meal Consumed - Lunch: 100 Percent Meal Consumed - Dinner: 100 Subjective Subjective Patient was seen & assessed and interval progress reviewed with treatment team nursing and social work. Continues to use frequent prns especially Vistaril and reports ongoing severe anxiety. Last night had difficult evening with very high anxiety and continues to feel unable to utilize non-pharmacologic coping skills due to severe anxiety. However she also notes that this morning she feels "a tiny bit better" in terms of brief reprieve from anxiety which she hopes will last. She found propranolol prn yesterday somewhat helpful so she's going to try another prn today. Reviewed again her medications and what they do and why we are avoiding benzo use. She agrees with the plan. No side effects from medications. Continues to have periods of SI. Physical Exam Psychiatric Orientation: alert and oriented x 3 Apperance: appropriately dressed and appropriately groomed Eye Contact: good eye contact Motor Behavior: no abnormal motor movements Speech: normal rate/rhythm/volume of speech Affect: + depressed affect and + anxious affect Mood: + depressed mood and + anxious mood Thought Process: linear/logical thought process and + perseveration Thought Content: reality based without delusions Suicidal Thoughts: denies suicidal plan and denies suicidal intent; + reports suicidal thoughts (passive on unit) Homicidal Thoughts: denies homicidal thoughts Hallucinations: no auditory hallucinations and no visual hallucinations Cognition: attention grossly intact and language grossly intact Estimated Intelligence: consistent with education level Insight: + limited insight Judgement: + fair judgement Vital Signs (Past 24 Hours) Last Vital Signs Temp 36.6 C 01/16/22 06:44 Pulse 63 01/16/22 06:46 Resp 18 01/16/22 06:44 BP 131/68 01/16/22 06:46 Pulse Ox 98 01/12/22 20:27 Results & Data ([facility]) Laboratory Results Laboratory Results - last 24 hr 01/12/22 15:10 U OH-Alprazolam Confrm 268 H 7-Amino Clonazepam 211 H Ur Nordiazepam Confirm NEGATIVE U OH-ethylflurazepam NEGATIVE U Lorazepam Cnf GC/MS NEGATIVE U Oxazepam Confm GC/MS NEGATIVE Ur Temazepam Confirm NEGATIVE U OH-Triazolam Confirm NEGATIVE U OH-Midazolam Confirm NEGATIVE Drug Screen Comment SEE NOTE Current Inpatient Medications Current Inpatient Medications: Current Inpatient Medications Acetaminophen (Acetaminophen 325 Mg Tab) 650 mg PO Q4H PRN PRN Reason: Headache or Minor Fever Stop: 02/11/22 20:26 Al Hydrox/Mg Hydrox/Simethicone (Aluminum/Magnesium Susp 30 Ml Udc) 30 ml PO Q4H PRN PRN Reason: GI Upset Stop: 02/11/22 20:26 Aripiprazole (Aripiprazole 5 Mg Tab) 2.5 mg PO QAM [facility] Stop: 02/14/22 08:59 Last Admin: 01/15/22 08:39 Dose: 2.5 mg Documented by: Atorvastatin Calcium (Atorvastatin 10 Mg Tab) 10 mg PO QAM [facility] Stop: 02/12/22 12:14 Last Admin: 01/15/22 08:38 Dose: 10 mg Documented by: Bismuth Subsalicylate (Bismuth Subsalicylate Liqd 236 Ml) 15 ml PO PRN PRN PRN Reason: Loose Stool Stop: 02/11/22 20:26 Gabapentin (Gabapentin 100 Mg Cap) 100 mg PO Q8 PRN PRN Reason: Anxiety Stop: 02/12/22 13:59 Gabapentin (Gabapentin 400 Mg Cap) 400 mg PO TID [facility] Stop: 02/14/22 20:59 Last Admin: 01/15/22 20:33 Dose: 400 mg Documented by: Hydroxyzine HCl (Hydroxyzine Hcl 25 Mg Tab) 50 mg PO HSZ PRN PRN Reason: Insomnia Stop: 02/11/22 20:26 Last Admin: 01/15/22 20:34 Dose: 50 mg Documented by: Hydroxyzine HCl (Hydroxyzine Hcl 25 Mg Tab) 25 mg PO Q4H PRN PRN Reason: Anxiety Stop: 02/11/22 20:26 Last Admin: 01/15/22 16:59 Dose: 25 mg Documented by: Losartan Potassium (Losartan Potassium 25 Mg Tab) 25 mg PO QAM [facility] Stop: 02/12/22 12:14 Last Admin: 01/15/22 08:39 Dose: 25 mg Documented by: Magnesium Hydroxide (Magnesium Hydroxide Susp 30 Ml Udc) 30 ml PO DAILY PRN PRN Reason: Constipation Stop: 02/11/22 20:26 Zolpidem 12.5mg Er: Non-Formulary Patient's Own Med 1 ea PO HS [facility] Stop: 02/12/22 21:59 Last Admin: 01/15/22 21:00 Dose: 12.5 mg Documented by: Propranolol HCl (Propranolol Hcl 10 Mg Tab) 10 mg PO BID PRN PRN Reason: Anxiety/Agitation Stop: 02/13/22 20:59 Last Admin: 01/15/22 10:53 Dose: 10 mg Documented by: Sodium Chloride (Sodium Chloride 0.65% Na Soln 45 Ml ([place])) 1 - 2 sprays NA PRN PRN PRN Reason: Nasal Dryness/Congestion Stop: 02/11/22 20:26 Vortioxetine (Vortioxetine Hydrobromide) 1 ea PO QAM [facility]; Protocol Stop: 02/12/22 11:59 Last Admin: 01/15/22 08:40 Dose: 1 ea Documented by: Mental Health & Subst Abuse Tx Psychiatrist Name of Psychiatrist: Dr. Maninder Cabrera DO Psychiatrist's Psychiatric Appointment Comment: [address] [place] [address] Therapist Name of Therapist: Allyn Alesson, RN, ANIMAL WARDEN Counseling Therapist's Therapy Appointment Comment: [address] [facility], [address], [place] [address] Ladle Liner Name of Ladle Liner: None Post Discharge Appointments Contact Information Discharge Discharge Address: [address] [place] [address], [place], [place] (1) Depression Depression Type: unspecified Qualified Code(s): F32.A - Depression, unspecified
[2022-01-16] MEDS: PROPRANOLOL HCL 10 MG TAB PO PRN (14:32)
[2022-01-16] MEDS: GABAPENTIN 600 MG TAB PO SCH (20:47)
[2022-01-16] MEDS: ZOLPIDEM 12.5 MG PO SCH (20:47)
[2022-01-17] MEDS: VORTIOXETINE HYDROBROMIDE PO SCH (08:27)
[2022-01-17] MEDS: ATORVASTATIN 10 MG TAB PO SCH (08:28)
[2022-01-17] MEDS: GABAPENTIN 600 MG TAB PO SCH ×3 (08:28→21:28)
[2022-01-17] MEDS: ARIPiprazole 5 MG TAB PO SCH (08:29)
[2022-01-17] MEDS: LOSARTAN POTASSIUM 25 MG TAB PO SCH (08:30)
--- NOTE | 2022-01-17 08:46 | Psychiatric Progress Note ---
Date of Service January 17, 2022 Impression / Recommendations Impression 76 yo female with ruminative geriatric depression with SI in the context of severe anxiety. Otherwise amazing healthy/mobile and appears much younger than stated age. Significant psychosocial stressors since Sep 2021 which patient is minimizing. It should be noted that she was taking 120 mg Cymbalta until just over 1 week ago at which time she took 60 mg for "january 2-3 days" then after a few days started Trintellix just a few days prior to admission. The patient is deemed unstable and requires psychiatric hospitalization for diagnostic clarification, safety and stabilization, medication management and development of further coping skills. MNPR due to severe anxiety with inability to tolerate a roommate/ additional environmental stressors. 01/17/22: Ongoing severe anxiety, depression and intermittent SI. Discussed medication options in detail. She would like to try something else to further help with sleep and mood and agreed to start mirtazapine for this. Reviewed risks including but not limited to sedation, dizziness, dry mouth, increased appetite. We also discussed stopping the abilify which she consents to as she continues to describe symptoms consistent with possible akathisia and the propranolol does seem to help with this further suggesting possible akathisia as cause. (1) Recurrent severe major depressive disorder with anxiety: (2) Depression: (3) Anxiety: 01/17/22: Disocntinue abilify, start mirtazapine 15mg qhs. Continue with other meds and tx plan. 01/16/22: Increase gabapentin to 600mg TID. Continue with other meds and tx plan. Family meeting today. 01/15/22: Increase gabapentin to 400mg TID. Continue with other medications and tx plan. 01/14/22: Increase gabapentin to 300mg TID. Decrease abilify to 2.5 mg qAM. Added propranolol 10mg BID prn for akathisia. Fasting labs in the AM for lipid profile and glucose. 01/13/22: The patient was admitted to the [facility] ([facility]) on q15 min checks (behavioral with suicide precautions) for safety. The patient will participate in group, recreational, and milieu therapies and will be offered additional individual and family sessions as clinically appropriate. Will continue Abilify 5 mg and check metabolic monitoring labs. No evidence of abnormal motor movements at baseline. Patient is agreeable to continue Trintellix trial. She has not been on Remeron in past which could be another augmentation strategy. Hope to minimize anticholinergic side effects of Vistaril so will offer Neurontin 100 mg q8 prn as a trial for anxiety at least short term. At this point she would prefer some standing Neurontin and tolerated 300 mg before. Will start BID Neurontin. Her outpatient psychiatrist does coordinate with a psychiatrist that prescribes Spravato and does TMS but he is unsure if patient will be in the area as reportedly has homes in [facility], [place] and [facility] but is also not sure it's indicated. Inventory Assets Strengths: intelligent, family support, longstanding relationship with a psychiatrist and therapist Needs: improving coping with anxiety Suicide Risk Level Suicide Risk Level: Moderate (q15 min suicide checks) Suicide Risk Level Comments: unable to contract outside of the hospital, no prior attempts, thoughts more passive on unit but continues to feel helplessness and hopeless in context of depression and severe anxiety Risk Factors Assessment : Yes Do You Have Access To A Gun?: No Health Problems: No Mental Health Diagnoses: Yes Substance Use Disorders: No Previous Attempt: No Previous Psychiatric Hospitalization: No Protective Factors Assessment : Yes 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 Chief Complaint "I'm up and down". Review of Systems Sleep Information Total Hours of Sleep: 8.75 Meal Information Percent Meal Consumed - Breakfast: 90 Percent Meal Consumed - Lunch: 100 Percent Meal Consumed - Dinner: 80 Subjective Subjective Patient was seen & assessed and interval progress reviewed with treatment team nursing and social work. Had her family meeting, didn't require any prns last evening. Had difficulty falling asleep even with the higher dose of gabapentin, didn't take the Vistaril prn and felt without this sleep was very challenging. Today her mood remains "up and down" with periods of ongoing very high anxiety. She notes some improvement in cognitive function noting that she is starting to feel "normal-nelly cognitively" and no longer having some of the word finding difficulty she had previously. No side effects from increased dose of gabapentin. Still has internal sense of restlessness and "discomfort" which propranolol helps with a bit. Physical Exam Psychiatric Orientation: alert and oriented x 3 Apperance: appropriately dressed and appropriately groomed Eye Contact: good eye contact Motor Behavior: no abnormal motor movements Speech: normal rate/rhythm/volume of speech Affect: + depressed affect and + anxious affect Mood: + depressed mood and + anxious mood Thought Process: linear/logical thought process and + perseveration Thought Content: reality based without delusions Suicidal Thoughts: denies suicidal plan and denies suicidal intent; + reports suicidal thoughts (passive on unit) Homicidal Thoughts: denies homicidal thoughts Hallucinations: no auditory hallucinations and no visual hallucinations Cognition: attention grossly intact and language grossly intact Estimated Intelligence: consistent with education level Insight: + limited insight Judgement: + fair judgement Vital Signs (Past 24 Hours) Last Vital Signs Temp 36.8 C 01/17/22 06:46 Pulse 64 01/17/22 06:49 Resp 18 01/17/22 06:46 BP 126/64 01/17/22 06:49 Pulse Ox 98 01/12/22 20:27 Results & Data ([facility]) Current Inpatient Medications Current Inpatient Medications: Current Inpatient Medications Acetaminophen (Acetaminophen 325 Mg Tab) 650 mg PO Q4H PRN PRN Reason: Headache or Minor Fever Stop: 02/11/22 20:26 Al Hydrox/Mg Hydrox/Simethicone (Aluminum/Magnesium Susp 30 Ml Udc) 30 ml PO Q4H PRN PRN Reason: GI Upset Stop: 02/11/22 20:26 Aripiprazole (Aripiprazole 5 Mg Tab) 2.5 mg PO QAM [facility] Stop: 02/14/22 08:59 Last Admin: 01/17/22 08:29 Dose: 2.5 mg Documented by: Atorvastatin Calcium (Atorvastatin 10 Mg Tab) 10 mg PO QAM RUDY Stop: 02/12/22 12:14 Last Admin: 01/17/22 08:28 Dose: 10 mg Documented by: Bismuth Subsalicylate (Bismuth Subsalicylate Liqd 236 Ml) 15 ml PO PRN PRN PRN Reason: Loose Stool Stop: 02/11/22 20:26 Gabapentin (Gabapentin 100 Mg Cap) 100 mg PO Q8 PRN PRN Reason: Anxiety Stop: 02/12/22 13:59 Gabapentin (Gabapentin 600 Mg Tab) 600 mg PO TID RUDY Stop: 02/15/22 20:59 Last Admin: 01/17/22 08:28 Dose: 600 mg Documented by: Hydroxyzine HCl (Hydroxyzine Hcl 25 Mg Tab) 50 mg PO HSZ PRN PRN Reason: Insomnia Stop: 02/11/22 20:26 Last Admin: 01/15/22 20:34 Dose: 50 mg Documented by: Hydroxyzine HCl (Hydroxyzine Hcl 25 Mg Tab) 25 mg PO Q4H PRN PRN Reason: Anxiety Stop: 02/11/22 20:26 Last Admin: 01/15/22 16:59 Dose: 25 mg Documented by: Losartan Potassium (Losartan Potassium 25 Mg Tab) 25 mg PO QAM RUDY Stop: 02/12/22 12:14 Last Admin: 01/17/22 08:30 Dose: 25 mg Documented by: Magnesium Hydroxide (Magnesium Hydroxide Susp 30 Ml Udc) 30 ml PO DAILY PRN PRN Reason: Constipation Stop: 02/11/22 20:26 Zolpidem 12.5mg Er: Non-Formulary Patient's Own Med 1 ea PO HS RUDY Stop: 02/12/22 21:59 Last Admin: 01/16/22 20:47 Dose: 12.5 mg Documented by: Propranolol HCl (Propranolol Hcl 10 Mg Tab) 10 mg PO BID PRN PRN Reason: Anxiety/Agitation Stop: 02/13/22 20:59 Last Admin: 01/16/22 14:32 Dose: 10 mg Documented by: Sodium Chloride (Sodium Chloride 0.65% Na Soln 45 Ml ([place])) 1 - 2 sprays NA PRN PRN PRN Reason: Nasal Dryness/Congestion Stop: 02/11/22 20:26 Vortioxetine (Vortioxetine Hydrobromide) 1 ea PO QAM RUYD; Protocol Stop: 02/12/22 11:59 Last Admin: 01/17/22 08:27 Dose: 1 ea Documented by: Mental Health & Subst Abuse Tx Psychiatrist Name of Psychiatrist: Dr. Maninder Cabrera DO Psychiatrist's Psychiatric Appointment Comment: [address] [place] [address] Therapist Name of Therapist: Allyn Graham RN, [employer] Counseling Therapist's Therapy Appointment Comment: [address] [facility], [address], [place] [address] Animal Researcher Name of Animal Researcher: None Post Discharge Appointments Contact Information Discharge Discharge Address: [address] [place] [address], [place], [place] (1) Depression Depression Type: unspecified Qualified Code(s): F32.A - Depression, unspecified
[2022-01-17] MEDS: PROPRANOLOL HCL 10 MG TAB PO PRN (11:37)
[2022-01-17] MEDS: hydrOXYzine HCl 25 MG TAB PO PRN (17:20)
[2022-01-17] MEDS: ZOLPIDEM 12.5 MG PO SCH (21:28)
[2022-01-17] MEDS ORDERED: MIRTAZAPINE TAB 15 MG TAB PO SCH (22:00)
--- NOTE | 2022-01-18 08:50 | Psychiatric Progress Note ---
Date of Service January 18, 2022 Impression / Recommendations Impression 76 yo female with ruminative geriatric depression with SI in the context of severe anxiety. Otherwise amazing healthy/mobile and appears much younger than stated age. Significant psychosocial stressors since Sep 2021 which patient is minimizing. It should be noted that she was taking 120 mg Cymbalta until just over 1 week prior to admission at which time she took 60 mg for "maybe 2-3 days" then after a few days started Trintellix just a few days prior to admission. The patient is deemed unstable and requires psychiatric hospitalization for diagnostic clarification, safety and stabilization, medication management and development of further coping skills. MNPR due to severe anxiety with inability to tolerate a roommate/ additional environmental stressors. 01/18/22: Ongoing severe anxiety, depression and intermittent SI. She had some fatigue today with mirtazapine from last night and agrees to reduce the dose. (1) Recurrent severe major depressive disorder with anxiety: (2) Depression: (3) Anxiety: 01/18/22: reduce mirtazapine to 7.5 mg qhs, continue other medications and tx plan. 01/17/22: Discontinue abilify, start mirtazapine 15mg qhs. Continue with other meds and tx plan. 01/16/22: Increase gabapentin to 600mg TID. Continue with other meds and tx plan. Family meeting today. 01/15/22: Increase gabapentin to 400mg TID. Continue with other medications and tx plan. 01/14/22: Increase gabapentin to 300mg TID. Decrease abilify to 2.5 mg qAM. Added propranolol 10mg BID prn for akathisia. Fasting labs in the AM for lipid profile and glucose. 01/13/22: The patient was admitted to the [facility] ([facility]) on q15 min checks (behavioral with suicide precautions) for safety. The patient will participate in group, recreational, and milieu therapies and will be offered additional individual and family sessions as clinically appropriate. Will continue Abilify 5 mg and check metabolic monitoring labs. No evidence of abnormal motor movements at baseline. Patient is agreeable to continue Trintellix trial. She has not been on Remeron in past which could be another augmentation strategy. Hope to minimize anticholinergic side effects of Vistaril so will offer Neurontin 100 mg q8 prn as a trial for anxiety at least short term. At this point she would prefer some standing Neurontin and tolerated 300 mg before. Will start BID Neurontin. Her outpatient psychiatrist does coordinate with a psychiatrist that prescribes Spravato and does TMS but he is unsure if patient will be in the area as reportedly has homes in [facility], [place] and [facility] but is also not sure it's indicated. Inventory Assets Strengths: intelligent, family support, longstanding relationship with a psychiatrist and therapist Needs: improving coping with anxiety Suicide Risk Level Suicide Risk Level: Moderate (q15 min suicide checks) Suicide Risk Level Comments: unable to contract outside of the hospital, no prior attempts, intermittent passive SI on unit but continues to feel helplessness and hopeless in context of depression and severe anxiety, able to safety contract and feels safe in the hospital. 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 Chief Complaint "I feel very bleak". Review of Systems Sleep Information Total Hours of Sleep: 7.5 Meal Information Percent Meal Consumed - Breakfast: 100 Percent Meal Consumed - Lunch: 100 Percent Meal Consumed - Dinner: 90 Subjective Subjective Patient was seen & assessed and interval progress reviewed with treatment team nursing and social work. Took some prn propranolol yesterday afternoon, in the evening got prn of Vistaril and then slept through community meeting then woke up for bedtime medications and went back to sleep. Feeling more hopeful this morning. But this afternoon ongoing anxiety which prompts SI and thoughts of no longer wanting to be alive, no plan or intent and continues to feel safe here in the hospital but she worries about how she will cope when she leaves or if she will end up being discharged too early. Focused on timing of prns and overwhelmed by challenge of discomfort from anxiety but also not wanting to over rely on medication. [place] more fatigued this morning from mirtazapine. She didn't feel it was very helpful for sleep last night but wants to try it again tonight. No other medication side effects. No significant change in restlessness nor anxiety with holding abilify dose this morning. She's able to reflect on role of recent losses and complicated grief in impacting her mood and likely contributing to anxiety over the last few months. Physical Exam Psychiatric Orientation: alert and oriented x 3 Apperance: appropriately dressed and appropriately groomed Eye Contact: good eye contact Motor Behavior: no abnormal motor movements Speech: normal rate/rhythm/volume of speech Affect: + depressed affect and + anxious affect Mood: + depressed mood and + anxious mood Thought Process: linear/logical thought process and + perseveration Thought Content: reality based without delusions Suicidal Thoughts: denies suicidal plan and denies suicidal intent; + reports suicidal thoughts (passive on unit) Homicidal Thoughts: denies homicidal thoughts Hallucinations: no auditory hallucinations and no visual hallucinations Cognition: attention grossly intact and language grossly intact Estimated Intelligence: consistent with education level Insight: + limited insight Judgement: + fair judgement Vital Signs (Past 24 Hours) Last Vital Signs Temp 36.6 C 01/18/22 06:34 Pulse 70 01/18/22 06:34 Resp 16 01/18/22 06:39 BP 122/90 01/18/22 06:39 Pulse Ox 98 01/12/22 20:27 Results & Data ([facility]) Current Inpatient Medications Current Inpatient Medications: Current Inpatient Medications Acetaminophen (Acetaminophen 325 Mg Tab) 650 mg PO Q4H PRN PRN Reason: Headache or Minor Fever Stop: 02/11/22 20:26 Al Hydrox/Mg Hydrox/Simethicone (Aluminum/Magnesium Susp 30 Ml Udc) 30 ml PO Q4H PRN PRN Reason: GI Upset Stop: 02/11/22 20:26 Atorvastatin Calcium (Atorvastatin 10 Mg Tab) 10 mg PO QAM RUDY Stop: 02/12/22 12:14 Last Admin: 01/17/22 08:28 Dose: 10 mg Documented by: Bismuth Subsalicylate (Bismuth Subsalicylate Liqd 236 Ml) 15 ml PO PRN PRN PRN Reason: Loose Stool Stop: 02/11/22 20:26 Gabapentin (Gabapentin 100 Mg Cap) 100 mg PO Q8 PRN PRN Reason: Anxiety Stop: 02/12/22 13:59 Gabapentin (Gabapentin 600 Mg Tab) 600 mg PO TID RUDY Stop: 02/15/22 20:59 Last Admin: 01/17/22 21:28 Dose: 600 mg Documented by: Hydroxyzine HCl (Hydroxyzine Hcl 25 Mg Tab) 50 mg PO HSZ PRN PRN Reason: Insomnia Stop: 02/11/22 20:26 Last Admin: 01/15/22 20:34 Dose: 50 mg Documented by: Hydroxyzine HCl (Hydroxyzine Hcl 25 Mg Tab) 25 mg PO Q4H PRN PRN Reason: Anxiety Stop: 02/11/22 20:26 Last Admin: 01/17/22 17:20 Dose: 25 mg Documented by: Losartan Potassium (Losartan Potassium 25 Mg Tab) 25 mg PO QAM RUDY Stop: 02/12/22 12:14 Last Admin: 01/17/22 08:30 Dose: 25 mg Documented by: Magnesium Hydroxide (Magnesium Hydroxide Susp 30 Ml Udc) 30 ml PO DAILY PRN PRN Reason: Constipation Stop: 02/11/22 20:26 Mirtazapine (Mirtazapine Tab 15 Mg Tab) 15 mg PO HS RUDY Stop: 02/16/22 21:59 Last Admin: 01/17/22 21:27 Dose: 15 mg Documented by: Zolpidem 12.5mg Er: Non-Formulary Patient's Own Med 1 ea PO HS RUDY Stop: 02/12/22 21:59 Last Admin: 01/17/22 21:28 Dose: 12.5 mg Documented by: Propranolol HCl (Propranolol Hcl 10 Mg Tab) 10 mg PO BID PRN PRN Reason: Anxiety/Agitation Stop: 02/13/22 20:59 Last Admin: 01/17/22 11:37 Dose: 10 mg Documented by: Sodium Chloride (Sodium Chloride 0.65% Na Soln 45 Ml ([place])) 1 - 2 sprays NA PRN PRN PRN Reason: Nasal Dryness/Congestion Stop: 02/11/22 20:26 Vortioxetine (Vortioxetine Hydrobromide) 1 ea PO QAM RUDY; Protocol Stop: 02/12/22 11:59 Last Admin: 01/17/22 08:27 Dose: 1 ea Documented by: Mental Health & Subst Abuse Tx Psychiatrist Name of Psychiatrist: Dr. Maninder Cabrera, DO Psychiatrist's Date of Appointment with Psychiatrist: 02/03/22 Time of Appointment with Psychiatrist: 11:20am Psychiatric Appointment Comment: [address] [place] [address] Therapist Name of Therapist: Allyn Graham RN, [employer] Counseling Therapist's Date of Therapist Appointment: 01/24/22 Time of Therapist Appointment: 1pm Therapy Appointment Comment: telehealth Order Taker Name of Order Taker: None Post Discharge Appointments Contact Information Discharge Discharge Address: [address] [place] [address], [place], [place] (1) Depression Depression Type: unspecified Qualified Code(s): F32.A - Depression, unspecified
[2022-01-18] MEDS: LOSARTAN POTASSIUM 25 MG TAB PO SCH (08:55)
[2022-01-18] MEDS: GABAPENTIN 600 MG TAB PO SCH ×3 (08:55→20:38)
[2022-01-18] MEDS: VORTIOXETINE HYDROBROMIDE PO SCH (08:55)
[2022-01-18] MEDS: ATORVASTATIN 10 MG TAB PO SCH (08:55)
[2022-01-18] MEDS: PROPRANOLOL HCL 10 MG TAB PO PRN (16:46)
[2022-01-18] MEDS: MIRTAZAPINE TAB 15 MG TAB PO SCH (20:38)
[2022-01-18] MEDS: ZOLPIDEM 12.5 MG PO SCH (20:39)
--- NOTE | 2022-01-19 09:10 | Psychiatric Progress Note ---
Date of Service January 19, 2022 Impression / Recommendations Impression 76 yo female with ruminative geriatric depression with SI in the context of severe anxiety. Otherwise amazing healthy/mobile and appears much younger than stated age. Significant psychosocial stressors since Sep 2021 which patient is minimizing. It should be noted that she was taking 120 mg Cymbalta until just over 1 week prior to admission at which time she took 60 mg for "maybe 2-3 days" then after a few days started Trintellix just a few days prior to admission. The patient is deemed unstable and requires psychiatric hospitalization for diagnostic clarification, safety and stabilization, medication management and development of further coping skills. MNPR due to severe anxiety with inability to tolerate a roommate/ additional environmental stressors. 01/19/22: Ongoing severe anxiety, depression and intermittent SI. She wants to continue with lower dose of mirtazapine. Discussed medication options in detail. She would like to restart abilify as we discuss that akathisia seems unlikely as physical anxiety sense has persisted even on lower dose and with discontinuation. Will restart in the afternoon as anxiety worsens around that time. If not beneficial could consider alternative antipsychotic option such as seroquel or risperidone or buspar trial but hesistant to add too many additional medications especially with addition of gabapentin. (1) Recurrent severe major depressive disorder with anxiety: (2) Depression: (3) Anxiety: 01/19/22: continue with mirtazapine 7.5 mg qhs and will restart abilify 5mg at 1400 qd 01/18/22: reduce mirtazapine to 7.5 mg qhs, continue other medications and tx plan. 01/17/22: Discontinue abilify, start mirtazapine 15mg qhs. Continue with other meds and tx plan. 01/16/22: Increase gabapentin to 600mg TID. Continue with other meds and tx plan. Family meeting today. 01/15/22: Increase gabapentin to 400mg TID. Continue with other medications and tx plan. 01/14/22: Increase gabapentin to 300mg TID. Decrease abilify to 2.5 mg qAM. Added propranolol 10mg BID prn for akathisia. Fasting labs in the AM for lipid profile and glucose. 01/13/22: The patient was admitted to the [facility] (locked inpatient mental health unit) on q15 min checks (behavioral with suicide precautions) for safety. The patient will participate in group, recreational, and milieu therapies and will be offered additional individual and family sessions as clinically appropriate. Will continue Abilify 5 mg and check metabolic monitoring labs. No evidence of abnormal motor movements at baseline. Patient is agreeable to continue Trintellix trial. She has not been on Remeron in past which could be another augmentation strategy. Hope to minimize anticholinergic side effects of Vistaril so will offer Neurontin 100 mg q8 prn as a trial for anxiety at least short term. At this point she would prefer some standing Neurontin and tolerated 300 mg before. Will start BID Neurontin. Her outpatient psychiatrist does coordinate with a psychiatrist that prescribes Spravato and does TMS but he is unsure if patient will be in the area as reportedly has homes in [facility] and [facility] but is also not sure it's indicated. Inventory Assets Strengths: intelligent, family support, longstanding relationship with a psychiatrist and therapist Needs: improving coping with anxiety Suicide Risk Level Suicide Risk Level: Moderate (q15 min suicide checks) Suicide Risk Level Comments: unable to contract outside of the hospital, no prior attempts, intermittent passive SI on unit but continues to feel helplessness and hopeless in context of depression and severe anxiety, able to safety contract and feels safe in the hospital. 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 Chief Complaint "Frustrated". Review of Systems Sleep Information Total Hours of Sleep: 8 Sleep Comments: pt on q-15 minute checks Meal Information Percent Meal Consumed - Breakfast: 90 Percent Meal Consumed - Lunch: 100 Percent Meal Consumed - Dinner: 90 Subjective Subjective Patient was seen & assessed and interval progress reviewed with treatment team nursing and social work. Took propranolol yesterday evening. Slept 8 hours. Remains very anxious and continues to have SI when anxiety intensifies. Feels frustrated that she is not feeling better, anxity and depression get much worse in the afternoons and even with stopping abilify she continues to have internal sense of anxiety which she notes spreads up her stomach to her brain. Continues to have awakenings at night and even though she is reported to sleep 8 hours she feels like she is not sleeping well. She doesn't have mental fog or excess sedation today with lower dose of mirtazapine last night. Physical Exam Psychiatric Orientation: alert and oriented x 3 Apperance: appropriately dressed and appropriately groomed Eye Contact: good eye contact Motor Behavior: no abnormal motor movements Speech: normal rate/rhythm/volume of speech Affect: + depressed affect and + anxious affect Mood: + depressed mood and + anxious mood Thought Process: linear/logical thought process and + perseveration Thought Content: reality based without delusions Suicidal Thoughts: denies suicidal plan and denies suicidal intent; + reports suicidal thoughts (passive on unit) Homicidal Thoughts: denies homicidal thoughts Hallucinations: no auditory hallucinations and no visual hallucinations Cognition: attention grossly intact and language grossly intact Estimated Intelligence: consistent with education level Insight: + limited insight Judgement: + fair judgement Vital Signs (Past 24 Hours) Last Vital Signs Temp 36.8 C 01/19/22 06:33 Pulse 60 01/19/22 06:34 Resp 16 01/19/22 06:33 BP 151/87 H 01/19/22 06:34 Pulse Ox 98 01/12/22 20:27 Results & Data ([facility]) Current Inpatient Medications Current Inpatient Medications: Current Inpatient Medications Acetaminophen (Acetaminophen 325 Mg Tab) 650 mg PO Q4H PRN PRN Reason: Headache or Minor Fever Stop: 02/11/22 20:26 Al Hydrox/Mg Hydrox/Simethicone (Aluminum/Magnesium Susp 30 Ml Udc) 30 ml PO Q4H PRN PRN Reason: GI Upset Stop: 02/11/22 20:26 Atorvastatin Calcium (Atorvastatin 10 Mg Tab) 10 mg PO QAM RUDY Stop: 02/12/22 12:14 Last Admin: 01/18/22 08:55 Dose: 10 mg Documented by: Bismuth Subsalicylate (Bismuth Subsalicylate Liqd 236 Ml) 15 ml PO PRN PRN PRN Reason: Loose Stool Stop: 02/11/22 20:26 Gabapentin (Gabapentin 100 Mg Cap) 100 mg PO Q8 PRN PRN Reason: Anxiety Stop: 02/12/22 13:59 Gabapentin (Gabapentin 600 Mg Tab) 600 mg PO TID RDUY Stop: 02/15/22 20:59 Last Admin: 01/18/22 20:38 Dose: 600 mg Documented by: Hydroxyzine HCl (Hydroxyzine Hcl 25 Mg Tab) 50 mg PO HSZ PRN PRN Reason: Insomnia Stop: 02/11/22 20:26 Last Admin: 01/15/22 20:34 Dose: 50 mg Documented by: Hydroxyzine HCl (Hydroxyzine Hcl 25 Mg Tab) 25 mg PO Q4H PRN PRN Reason: Anxiety Stop: 02/11/22 20:26 Last Admin: 01/17/22 17:20 Dose: 25 mg Documented by: Losartan Potassium (Losartan Potassium 25 Mg Tab) 25 mg PO QAM RUDY Stop: 02/12/22 12:14 Last Admin: 01/18/22 08:55 Dose: 25 mg Documented by: Magnesium Hydroxide (Magnesium Hydroxide Susp 30 Ml Udc) 30 ml PO DAILY PRN PRN Reason: Constipation Stop: 02/11/22 20:26 Mirtazapine (Mirtazapine Tab 15 Mg Tab) 7.5 mg PO HS RUDY Stop: 02/17/22 21:59 Last Admin: 01/18/22 20:38 Dose: 7.5 mg Documented by: Zolpidem 12.5mg Er: Non-Formulary Patient's Own Med 1 ea PO HS RUDY Stop: 02/12/22 21:59 Last Admin: 01/18/22 20:39 Dose: 12.5 mg Documented by: Propranolol HCl (Propranolol Hcl 10 Mg Tab) 10 mg PO BID PRN PRN Reason: Anxiety/Agitation Stop: 02/13/22 20:59 Last Admin: 01/18/22 16:46 Dose: 10 mg Documented by: Sodium Chloride (Sodium Chloride 0.65% Na Soln 45 Ml ([place])) 1 - 2 sprays NA PRN PRN PRN Reason: Nasal Dryness/Congestion Stop: 02/11/22 20:26 Vortioxetine (Vortioxetine Hydrobromide) 1 ea PO QAM RUDY; Protocol Stop: 02/12/22 11:59 Last Admin: 01/18/22 08:55 Dose: 1 ea Documented by: Mental Health & Subst Abuse Tx Psychiatrist Name of Psychiatrist: Dr. Maninder Cabrera DO Psychiatrist's Date of Appointment with Psychiatrist: 02/03/22 Time of Appointment with Psychiatrist: 11:20am Psychiatric Appointment Comment: [facility] [place], [place] Therapist Name of Therapist: Allyn Graham RN, CLERICAL OFFICE WORKER Counseling Therapist's Date of Therapist Appointment: 01/24/22 Time of Therapist Appointment: 1pm Therapy Appointment Comment: telehealth Deli Bakery Clerk Name of Deli Bakery Clerk: None Post Discharge Appointments Contact Information Discharge Discharge Address: [address] [place] [address], [place], [place] (1) Depression Depression Type: unspecified Qualified Code(s): F32.A - Depression, unspecified
[2022-01-19] MEDS: ATORVASTATIN 10 MG TAB PO SCH (09:33)
[2022-01-19] MEDS: GABAPENTIN 600 MG TAB PO SCH ×3 (09:33→20:48)
[2022-01-19] MEDS: VORTIOXETINE HYDROBROMIDE PO SCH (09:34)
[2022-01-19] MEDS: LOSARTAN POTASSIUM 25 MG TAB PO SCH (09:34)
[2022-01-19] MEDS: PROPRANOLOL HCL 10 MG TAB PO PRN (10:36)
[2022-01-19] MEDS ORDERED: ARIPiprazole 5 MG TAB PO SCH (14:45)
[2022-01-19] MEDS: MIRTAZAPINE TAB 15 MG TAB PO SCH (20:47)
[2022-01-19] MEDS: ZOLPIDEM 12.5 MG PO SCH (20:48)
--- NOTE | 2022-01-20 08:50 | Psychiatric Progress Note ---
Date of Service January 20, 2022 Impression / Recommendations Impression 76 yo female with ruminative geriatric depression with SI in the context of severe anxiety. Otherwise amazing healthy/mobile and appears much younger than stated age. Significant psychosocial stressors since Sep 2021 which patient is minimizing. It should be noted that she was taking 120 mg Cymbalta until just over 1 week prior to admission at which time she took 60 mg for "maybe 2-3 days" then after a few days started Trintellix just a few days prior to admission. The patient is deemed unstable and requires psychiatric hospitalization for diagnostic clarification, safety and stabilization, medication management and development of further coping skills. MNPR due to severe anxiety with inability to tolerate a roommate/ additional environmental stressors. 01/19/22: Ongoing severe anxiety, depression and intermittent SI. She wants to continue with lower dose of mirtazapine. Discussed medication options in detail. She would like to restart abilify as we discuss that akathisia seems unlikely as physical anxiety sense has persisted even on lower dose and with discontinuation. Will restart in the afternoon as anxiety worsens around that time. If not beneficial could consider alternative antipsychotic option such as seroquel or risperidone or buspar trial but hesistant to add too many additional medications especially with addition of gabapentin. (1) Recurrent severe major depressive disorder with anxiety: (2) Depression: (3) Anxiety: 01/19/22: continue with mirtazapine 7.5 mg qhs and will restart abilify 5mg at 1400 qd 01/18/22: reduce mirtazapine to 7.5 mg qhs, continue other medications and tx plan. 01/17/22: Discontinue abilify, start mirtazapine 15mg qhs. Continue with other meds and tx plan. 01/16/22: Increase gabapentin to 600mg TID. Continue with other meds and tx plan. Family meeting today. 01/15/22: Increase gabapentin to 400mg TID. Continue with other medications and tx plan. 01/14/22: Increase gabapentin to 300mg TID. Decrease abilify to 2.5 mg qAM. Added propranolol 10mg BID prn for akathisia. Fasting labs in the AM for lipid profile and glucose. 01/13/22: The patient was admitted to the [facility] (locked inpatient mental health unit) on q15 min checks (behavioral with suicide precautions) for safety. The patient will participate in group, recreational, and milieu therapies and will be offered additional individual and family sessions as clinically appropriate. Will continue Abilify 5 mg and check metabolic monitoring labs. No evidence of abnormal motor movements at baseline. Patient is agreeable to continue Trintellix trial. She has not been on Remeron in past which could be another augmentation strategy. Hope to minimize anticholinergic side effects of Vistaril so will offer Neurontin 100 mg q8 prn as a trial for anxiety at least short term. At this point she would prefer some standing Neurontin and tolerated 300 mg before. Will start BID Neurontin. Her outpatient psychiatrist does coordinate with a psychiatrist that prescribes Spravato and does TMS but he is unsure if patient will be in the area as reportedly has homes in [facility], [place] and [facility] but is also not sure it's indicated. Inventory Assets Strengths: intelligent, family support, longstanding relationship with a psychiatrist and therapist Needs: improving coping with anxiety Suicide Risk Level Suicide Risk Level: Moderate (q15 min suicide checks) Suicide Risk Level Comments: unable to contract outside of the hospital, no prior attempts, intermittent passive SI on unit but continues to feel helplessness and hopeless in context of depression and severe anxiety, able to safety contract and feels safe in the hospital. 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 Chief Complaint "[]". Review of Systems Sleep Information Total Hours of Sleep: 6.75 Sleep Comments: pt on q-15 minute checks Meal Information Percent Meal Consumed - Breakfast: 90 Percent Meal Consumed - Lunch: 100 Percent Meal Consumed - Dinner: 100 Subjective Subjective Patient was seen & assessed and interval progress reviewed with treatment team nursing and social work. Physical Exam Psychiatric Orientation: alert and oriented x 3 Apperance: appropriately dressed and appropriately groomed Eye Contact: good eye contact Motor Behavior: no abnormal motor movements Speech: normal rate/rhythm/volume of speech Affect: + depressed affect and + anxious affect Mood: + depressed mood and + anxious mood Thought Process: linear/logical thought process and + perseveration Thought Content: reality based without delusions Suicidal Thoughts: denies suicidal plan and denies suicidal intent; + reports suicidal thoughts (passive on unit) Homicidal Thoughts: denies homicidal thoughts Hallucinations: no auditory hallucinations and no visual hallucinations Cognition: attention grossly intact and language grossly intact Estimated Intelligence: consistent with education level Insight: + limited insight Judgement: + fair judgement Vital Signs (Past 24 Hours) Last Vital Signs Temp 36.8 C 01/20/22 06:36 Pulse 76 01/20/22 06:37 Resp 16 01/20/22 06:36 BP 172/72 H 01/20/22 06:37 Pulse Ox 98 01/12/22 20:27 Results & Data ([facility]) Current Inpatient Medications Current Inpatient Medications: Current Inpatient Medications Acetaminophen (Acetaminophen 325 Mg Tab) 650 mg PO Q4H PRN PRN Reason: Headache or Minor Fever Stop: 02/11/22 20:26 Al Hydrox/Mg Hydrox/Simethicone (Aluminum/Magnesium Susp 30 Ml Udc) 30 ml PO Q4H PRN PRN Reason: GI Upset Stop: 02/11/22 20:26 Aripiprazole (Aripiprazole 5 Mg Tab) 5 mg PO TODAY@1400 [facility] Stop: 02/18/22 14:44 Last Admin: 01/19/22 15:16 Dose: 5 mg Documented by: Atorvastatin Calcium (Atorvastatin 10 Mg Tab) 10 mg PO QAM [facility] Stop: 02/12/22 12:14 Last Admin: 01/19/22 09:33 Dose: 10 mg Documented by: Bismuth Subsalicylate (Bismuth Subsalicylate Liqd 236 Ml) 15 ml PO PRN PRN PRN Reason: Loose Stool Stop: 02/11/22 20:26 Gabapentin (Gabapentin 100 Mg Cap) 100 mg PO Q8 PRN PRN Reason: Anxiety Stop: 02/12/22 13:59 Gabapentin (Gabapentin 600 Mg Tab) 600 mg PO TID [facility] Stop: 02/15/22 20:59 Last Admin: 01/19/22 20:48 Dose: 600 mg Documented by: Hydroxyzine HCl (Hydroxyzine Hcl 25 Mg Tab) 50 mg PO HSZ PRN PRN Reason: Insomnia Stop: 02/11/22 20:26 Last Admin: 01/15/22 20:34 Dose: 50 mg Documented by: Hydroxyzine HCl (Hydroxyzine Hcl 25 Mg Tab) 25 mg PO Q4H PRN PRN Reason: Anxiety Stop: 02/11/22 20:26 Last Admin: 01/17/22 17:20 Dose: 25 mg Documented by: Losartan Potassium (Losartan Potassium 25 Mg Tab) 25 mg PO QAM RUDY Stop: 02/12/22 12:14 Last Admin: 01/19/22 09:34 Dose: 25 mg Documented by: Magnesium Hydroxide (Magnesium Hydroxide Susp 30 Ml Udc) 30 ml PO DAILY PRN PRN Reason: Constipation Stop: 02/11/22 20:26 Mirtazapine (Mirtazapine Tab 15 Mg Tab) 7.5 mg PO HS RUDY Stop: 02/17/22 21:59 Last Admin: 01/19/22 20:47 Dose: 7.5 mg Documented by: Zolpidem 12.5mg Er: Non-Formulary Patient's Own Med 1 ea PO HS RUDY Stop: 02/12/22 21:59 Last Admin: 01/19/22 20:48 Dose: 12.5 mg Documented by: Propranolol HCl (Propranolol Hcl 10 Mg Tab) 10 mg PO BID PRN PRN Reason: Anxiety/Agitation Stop: 02/13/22 20:59 Last Admin: 01/19/22 10:36 Dose: 10 mg Documented by: Sodium Chloride (Sodium Chloride 0.65% Na Soln 45 Ml ([place])) 1 - 2 sprays NA PRN PRN PRN Reason: Nasal Dryness/Congestion Stop: 02/11/22 20:26 Vortioxetine (Vortioxetine Hydrobromide) 1 ea PO QAM RUDY; Protocol Stop: 02/12/22 11:59 Last Admin: 01/19/22 09:34 Dose: 1 ea Documented by: Mental Health & Subst Abuse Tx Psychiatrist Name of Psychiatrist: Dr. Maninder Cabrera DO Psychiatrist's Date of Appointment with Psychiatrist: 02/03/22 Time of Appointment with Psychiatrist: 11:20am Psychiatric Appointment Comment: [address] [place] [address] Therapist Name of Therapist: Allyn Graham, RN, STOCKING INSPECTOR Counseling Therapist's Date of Therapist Appointment: 01/24/22 Time of Therapist Appointment: 1pm Therapy Appointment Comment: telehealth Marketing And Promotions Manager Name of Marketing And Promotions Manager: None Post Discharge Appointments Contact Information Discharge Discharge Address: [address] [place] [address], [place], [place] (1) Depression Depression Type: unspecified Qualified Code(s): F32.A - Depression, unspecified
[2022-01-20] MEDS: GABAPENTIN 600 MG TAB PO SCH ×2 (09:12→14:50)
[2022-01-20] MEDS: ATORVASTATIN 10 MG TAB PO SCH (09:12)
[2022-01-20] MEDS: LOSARTAN POTASSIUM 25 MG TAB PO SCH (09:13)
[2022-01-20] MEDS: VORTIOXETINE HYDROBROMIDE PO SCH (09:13)
--- NOTE | 2022-01-20 14:52 | Discharge Summary ---
Date of Service January 20, 2022 History of Present Illness Patient presented to the ED at the direction of her outpatient psychiatrist and therapist. She has been having worsening of baseline anxiety for the past few weeks and rather persistent thoughts about , particularly worry about harming herself in the context of severe anxiety, like acting on thoughts to OD or jump from a balcony. She feels she "can't live like this." Recent addition of Trintellix and Xanax "do nothing". Her sleep remains largely intact with Ambien CR 12.5 mg daily. Appetite varies. She is less interested in reading and walking. She denies somatic preoccupation but is very med focussed, "on getting those neurotransmitters right." She minimizes any marital issues (report of divorce) as of 12 years is there and "not going anywhere." Her father and valanm-da-tnf in the past several months (father in Sep 2021 around the same time she had marital issues) and her twin sister had a stroke. 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 She has 2 adult children from a previous marriage of >35 years. During the interview she repeatedly referred to her anxiety and nothing working but did not appear externally restless. Prn Vistaril this am with minimal benefit. Abilify dosing confirmed and ordered. She reports benzodiazepines are ineffective (Klonopin and Xanax) yet also requested. Reviewed fall risk in patients >65 and need for prior med list from Dr. Bah. It is not clear whether or not she wants to continue with Trintellix trial. The medication is non-formulary but she did bring in her belongings. Physical Exam Vital Signs (Past 24 Hours) Last Vital Signs Temp 36.8 C 01/20/22 06:36 Pulse 76 01/20/22 06:37 Resp 16 01/20/22 06:36 BP 172/72 H 01/20/22 06:37 Pulse Ox 98 01/12/22 20:27 See admission H&P and DOD summary. Principal Diagnosis Major depressive disorder with anxious distress, Generalized anxiety disorder Psychiatric Data See daily stay summary. In short, patient was engaged with the social/therapeutic milieu of the unit, safety was maintained and the patient was cooperative with care. Medication changes included discontinuation of alprazolam and abilify (due to concern for akathisia which re-emerged on re-trial) and initiation of mirtazapine, gabapentin, propranolol prn and hydroxyzine prn and they tolerated this well. Ideally overtime as Trintellix continues to take effect and as any lingering duloxetine withdrawal side effects resolve she may be able to tolerate future taper of gabapentin as it carries risks in older adults but was felt to be a safer option for her severe anxiety than benzodiazepines or excessive anticholinergic options or antipsychotics. A family session was held and safety plan was completed prior to discharge. In the days leading up to discharge she consistently denied any active SI though had periods of passive SI during moments of severe anxiety. However on the day prior to discharge she had a very good meeting with her and felt that she was "turning the corner" and her mood and anxiety improved significantly with no further SI and she felt well supported by her and outpatient providers. She actively and insightfully participated in safety planning and in discussions about ways to seek support and recognizing warning signs and utilizing coping skills. Reviewed importance of seeking emergency care should SI intensify, worsen or should she feel unsafe in the future which she agrees to do. On the day of discharge she stated her mood was "better and I'm ready to go home" and remained future-oriented including spending with her , going to the [employer], seeing her dog, going grocery shopping, talking to her son and engaging in aftercare appointments for psychiatry and therapy. She continues to have some anxiety but she feels it is much better controlled and feels safe, ready to go home and feels she can manage safely in the outpatient setting. Day of Discharge Assessment Today the patient voices readiness for discharge. They note improvement in mood and anxiety. They deny thoughts of harm to self or others. Thoughts are organized and they are clinically improved from admission. There is no evidence of psychosis. They improved in the hospital with support and medication a djustments. They agree to take medications as prescribed and keep follow-up appointments. At the time of the discharge they are deemed to be stable and appropriate for outpatient level of care. They are not deemed to be at imminent risk of harm to self or others. They are aware of emergency and crisis services. Knows to call 911 or go to nearest emergency care center if in a crisis which cannot be handled as an outpatient. Transition of Care Transition Of Care Record: was reviewed with the patient Advance Directives Advance Directives Information Provided: Yes Advance Directives: Yes Mental Health Advance Directive: No Advance Directives on File: No Living Will: Yes Power of Car Salesperson: Yes Power of Car Salesperson Name: [place] Advance Directives Reason:: Declines as Mental Health Visit. Suicide Risk Level Suicide Risk Level: Low (q15 min observation checks) Suicide Risk Level Comments: Acute risk is low given improvement in mood and denial of SI, lack of access to lethal means, improvement in sleep, hopefulness and improvement in anxiety. Chronic risk is low given no hx of prior attempt, strong social support, good rapport with outpatient providers and stable relationships. Counseled on ways to reduce acute and chronic risk including engaging with outpatient providers, using safety plan if needed, utilizing supports, taking medication, and using coping skills. Modifiable risk factors of SI, anxiety and depression were addressed during hospitalization through development of new coping skills, family meeting, safety planning, and medication adjustments. 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) Stable Relationships: Yes Supportive Family: Yes Good Rapport with Provider: Yes Discharge Data Lab Results 01/12/22 01/12/22 01/12/22 15:10 15:10 15:10 WBC RBC Hgb Hct MCV MCH MCHC RDW Std Deviation RDW Coeff of Ilana Plt Count MPV Immature Gran % (Auto) Neut % (Auto) Lymph % (Auto) Adams % (Auto) Eos % (Auto) Baso % (Auto) Neut # (Auto) Lymph # (Auto) Adams # (Auto) Eos # (Auto) Baso # (Auto) Immature Gran # (Auto) Sodium Potassium Chloride Carbon Dioxide Anion Gap BUN Creatinine Est Cr Clr Drug Dosing Est GFR ( Amer) Est GFR (Non-Af Amer) BUN/Creatinine Ratio Glucose Fasting Glucose Calcium Total Bilirubin AST ALT Alkaline Phosphatase Total Protein Albumin Globulin Albumin/Globulin Ratio Triglycerides Cholesterol LDL Cholesterol, Calc VLDL Cholesterol, Calc HDL Cholesterol Cholesterol/HDL Ratio TSH Urine Color Yellow Urine Appearance Clear Urine pH 6.5 Ur Specific [place] 1.009 Urine Protein Negative Urine Glucose (UA) Negative Urine Ketones Negative Urine Blood Negative Urine Nitrite Negative Urine Bilirubin Negative Urine Urobilinogen Negative Ur Leukocyte Esterase 2+ H Urine WBC (Auto) 5-10 H Urine RBC (Auto) 0-4 U Hyaline Cast (Auto) 0 U Epithel Cells (Auto) 10-20 H Urine Bacteria (Auto) Negative Salicylates Urine Opiates Screen Neg Ur Methadone, Qual Neg Acetaminophen Urine Barbiturates Neg Ur Phencyclidine (PCP) Neg U Amphetamin/Meth Scrn Neg MDMA (Ecstasy) Screen Neg U OH-Alprazolam Confrm 268 H U Benzodiazepines Scrn Pos H 7-Amino Clonazepam 211 H Ur Nordiazepam Confirm NEGATIVE U OH-ethylflurazepam NEGATIVE U Lorazepam Cnf GC/MS NEGATIVE U Oxazepam Confm GC/MS NEGATIVE Ur Temazepam Confirm NEGATIVE U OH-Triazolam Confirm NEGATIVE U OH-Midazolam Confirm NEGATIVE Ur Cocaine Metabolite Neg U Marijuana (THC) Screen Neg Drug Screen Comment SEE NOTE Ethyl Alcohol mg/dL SARS-CoV-2, RNA, NAAT 01/12/22 01/12/22 01/12/22 15:28 15:28 15:28 WBC 6.45 RBC 4.33 Hgb 14.2 Hct 41.6 MCV 96.1 MCH 32.8 MCHC 34.1 RDW Std Deviation 43.5 RDW Coeff of Ilana 12.3 Plt Count 348 MPV 10.1 Immature Gran % (Auto) 0.2 Neut % (Auto) 69.4 Lymph % (Auto) 19.5 Adams % (Auto) 9.9 Eos % (Auto) 0.8 Baso % (Auto) 0.2 Neut # (Auto) 4.48 Lymph # (Auto) 1.26 Adams # (Auto) 0.64 H Eos # (Auto) 0.05 Baso # (Auto) 0.01 Immature Gran # (Auto) 0.01 Sodium 139 Potassium 3.7 Chloride 103 Carbon Dioxide 29 Anion Gap 7 BUN 12 Creatinine 0.82 Est Cr Clr Drug Dosing 52.4 Est GFR ( Amer) 81.1 Est GFR (Non-Af Amer) 70.0 BUN/Creatinine Ratio 14.6 Glucose 98 Fasting Glucose Calcium 9.5 Total Bilirubin 0.6 AST 24 ALT 16 Alkaline Phosphatase 86 Total Protein 6.9 Albumin 4.3 Globulin 2.6 Albumin/Globulin Ratio 1.7 Triglycerides Cholesterol LDL Cholesterol, Calc VLDL Cholesterol, Calc HDL Cholesterol Cholesterol/HDL Ratio TSH 2.982 Urine Color Urine Appearance Urine pH Ur Specific [place] Urine Protein Urine Glucose (UA) Urine Ketones Urine Blood Urine Nitrite Urine Bilirubin Urine Urobilinogen Ur Leukocyte Esterase Urine WBC (Auto) Urine RBC (Auto) U Hyaline Cast (Auto) U Epithel Cells (Auto) Urine Bacteria (Auto) Salicylates Urine Opiates Screen Ur Methadone, Qual Acetaminophen Urine Barbiturates Ur Phencyclidine (PCP) U Amphetamin/Meth Scrn MDMA (Ecstasy) Screen U OH-Alprazolam Confrm U Benzodiazepines Scrn 7-Amino Clonazepam Ur Nordiazepam Confirm U OH-ethylflurazepam U Lorazepam Cnf GC/MS U Oxazepam Confm GC/MS Ur Temazepam Confirm U OH-Triazolam Confirm U OH-Midazolam Confirm Ur Cocaine Metabolite U Marijuana (THC) Screen Drug Screen Comment Ethyl Alcohol mg/dL SARS-CoV-2, RNA, NAAT 01/12/22 01/12/22 01/12/22 15:28 15:28 15:34 WBC RBC Hgb Hct MCV MCH MCHC RDW Std Deviation RDW Coeff of Ilana Plt Count MPV Immature Gran % (Auto) Neut % (Auto) Lymph % (Auto) Adams % (Auto) Eos % (Auto) Baso % (Auto) Neut # (Auto) Lymph # (Auto) Adams # (Auto) Eos # (Auto) Baso # (Auto) Immature Gran # (Auto) Sodium Potassium Chloride Carbon Dioxide Anion Gap BUN Creatinine Est Cr Clr Drug Dosing Est GFR ( Amer) Est GFR (Non-Af Amer) BUN/Creatinine Ratio Glucose Fasting Glucose Calcium Total Bilirubin AST ALT Alkaline Phosphatase Total Protein Albumin Globulin Albumin/Globulin Ratio Triglycerides Cholesterol LDL Cholesterol, Calc VLDL Cholesterol, Calc HDL Cholesterol Cholesterol/HDL Ratio TSH Urine Color Urine Appearance Urine pH Ur Specific [place] Urine Protein Urine Glucose (UA) Urine Ketones Urine Blood Urine Nitrite Urine Bilirubin Urine Urobilinogen Ur Leukocyte Esterase Urine WBC (Auto) Urine RBC (Auto) U Hyaline Cast (Auto) U Epithel Cells (Auto) Urine Bacteria (Auto) Salicylates < 3.0 L Urine Opiates Screen Ur Methadone, Qual Acetaminophen < 3 L Urine Barbiturates Ur Phencyclidine (PCP) U Amphetamin/Meth Scrn MDMA (Ecstasy) Screen U OH-Alprazolam Confrm U Benzodiazepines Scrn 7-Amino Clonazepam Ur Nordiazepam Confirm U OH-ethylflurazepam U Lorazepam Cnf GC/MS U Oxazepam Confm GC/MS Ur Temazepam Confirm U OH-Triazolam Confirm U OH-Midazolam Confirm Ur Cocaine Metabolite U Marijuana (THC) Screen Drug Screen Comment Ethyl Alcohol mg/dL < 10.0 SARS-CoV-2, RNA, NAAT NEGATIVE 01/15/22 08:01 WBC RBC Hgb Hct MCV MCH MCHC RDW Std Deviation RDW Coeff of Ilana Plt Count MPV Immature Gran % (Auto) Neut % (Auto) Lymph % (Auto) Adams % (Auto) Eos % (Auto) Baso % (Auto) Neut # (Auto) Lymph # (Auto) Adams # (Auto) Eos # (Auto) Baso # (Auto) Immature Gran # (Auto) Sodium Potassium Chloride Carbon Dioxide Anion Gap BUN Creatinine Est Cr Clr Drug Dosing Est GFR ( Amer) Est GFR (Non-Af Amer) BUN/Creatinine Ratio Glucose Fasting Glucose 92 Calcium Total Bilirubin AST ALT Alkaline Phosphatase Total Protein Albumin Globulin Albumin/Globulin Ratio Triglycerides 76 Cholesterol 156 LDL Cholesterol, Calc 70 VLDL Cholesterol, Calc 15 HDL Cholesterol 71 Cholesterol/HDL Ratio 2.2 TSH Urine Color Urine Appearance Urine pH Ur Specific [place] Urine Protein Urine Glucose (UA) Urine Ketones Urine Blood Urine Nitrite Urine Bilirubin Urine Urobilinogen Ur Leukocyte Esterase Urine WBC (Auto) Urine RBC (Auto) U Hyaline Cast (Auto) U Epithel Cells (Auto) Urine Bacteria (Auto) Salicylates Urine Opiates Screen Ur Methadone, Qual Acetaminophen Urine Barbiturates Ur Phencyclidine (PCP) U Amphetamin/Meth Scrn MDMA (Ecstasy) Screen U OH-Alprazolam Confrm U Benzodiazepines Scrn 7-Amino Clonazepam Ur Nordiazepam Confirm U OH-ethylflurazepam U Lorazepam Cnf GC/MS U Oxazepam Confm GC/MS Ur Temazepam Confirm U OH-Triazolam Confirm U OH-Midazolam Confirm Ur Cocaine Metabolite U Marijuana (THC) Screen Drug Screen Comment Ethyl Alcohol mg/dL SARS-CoV-2, RNA, NAAT Hospital Course (1) Recurrent severe major depressive disorder with anxiety: (2) Depression: (3) Anxiety: 01/20/22: experienced restlessness with re-trial of abilify so discontinued, continue with current medications and tx plan. Safety plan completed. 01/19/22: continue with mirtazapine 7.5 mg qhs and will restart abilify 5mg at 1400 qd. Subsequent family meeting. 01/18/22: reduce mirtazapine to 7.5 mg qhs, continue other medications and tx plan. 01/17/22: Discontinue abilify, start mirtazapine 15mg qhs. Continue with other meds and tx plan. 01/16/22: Increase gabapentin to 600mg TID. Continue with other meds and tx plan. Family meeting today. 01/15/22: Increase gabapentin to 400mg TID. Continue with other medications and tx plan. 01/14/22: Increase gabapentin to 300mg TID. Decrease abilify to 2.5 mg qAM. Added propranolol 10mg BID prn for akathisia. Fasting labs in the AM for lipid profile and glucose. 01/13/22: The patient was admitted to the [facility] ([facility] mental health unit) on q15 min checks (behavioral with suicide precautions) for safety. The patient will participate in group, recreational, and milieu therapies and will be offered additional individual and family sessions as clinically appropriate. Will continue Abilify 5 mg and check metabolic monitoring labs. No evidence of abnormal motor movements at baseline. Patient is agreeable to continue Trintellix trial. She has not been on Remeron in past which could be another augmentation strategy. Hope to minimize anticholinergic side effects of Vistaril so will offer Neurontin 100 mg q8 prn as a trial for anxiety at least short term. At this point she would prefer some standing Neurontin and tolerated 300 mg before. Will start BID Neurontin. Her outpatient psychiatrist does coordinate with a psychiatrist that prescribes [place]rav[place] and does TMS but he is unsure if patient will be in the area as reportedly has homes in [facility], [place] and [facility] but is also not sure it's indicated. Mental Health & Subst Abuse Tx Psychiatrist Name of Psychiatrist: Dr. Maninder Cabrera, DO Psychiatrist's Date of Appointment with Psychiatrist: 02/03/22 Time of Appointment with Psychiatrist: 11:20am Psychiatric Appointment Comment: [address] [place] [address] Therapist Name of Therapist: Allyn Graham RN, ADMINISTRATIVE SERVICES COORDINATOR Counseling Therapist's Date of Therapist Appointment: 01/24/22 Time of Therapist Appointment: 1pm Therapy Appointment Comment: telehealth Fertilizer Supervisor Name of Fertilizer Supervisor: None Post Discharge Appointments Contact Information Discharge Discharge Address: [address] [place] [address] Discharge Plan Discharge Items Patient Disposition: Home - Self-Care Reason For Visit: MENTAL HEALTH, DEPRESSION Discharge Diagnosis: Major Depressive disorder with anxious distress Activity: Resume your previous activity Non-emergency contact: Primary Care Provider, Psychiatrist and Therapist Call non-emergency contact if: you have any medication questions and your symptoms worsen Follow-up/Referrals: PCP,NO [Primary Care Provider] - Diet: Regular Addtl Attending Provider Instructions: SPECIAL CARE INSTRUCTIONS: 1. Follow through with your scheduled aftercare appointments. If unable to keep an appointment, please call to reschedule. 2. Take your medication only as prescribed. Medication should not be changed or stopped without the approval of your doctor. In the event of worsening symptoms or concerns about side effects, contact your doctor immediately. 3. Utilize new healthy coping skills, anger management skills, and stress management skills learned during your hospitalization. Journal feelings and process them with a support person. Identify stressors or situations that may result in relapse, deterioration or inappropriate behaviors and develop a plan to deal with those issues. 4. If your coping skills are ineffective and you are in crisis, contact your outpatient providers for direction. If unable to reach your providers, please call the [facility] CRISIS LINE AT , go to the [facility] walk-in center at [address] [place] [address], [address], [place], or go to the closest Emergency Room. 5. Avoid alcohol and un-prescribed drugs. 6. You have been provided with the Mental Health Advance Directives Pamphlet for your review. 7. Your condition is stable for discharge to outpatient level of care, but recovery is an ongoing process. Ifthoughts to harm yourself or others return, follow the safety plan developed during your stay. Planning for a safe return home includes securing weapons. Our treatment team recommends weaponsbe removed from the home until your outpatient provider reassesses your progress. In rare cases where the items themselvescannot be removed, guns and ammunitionshould be secured separatelyand keys stored by a reliable personoutside of the home. If you were admitted on an involuntary commitment, the police or other legal authorities may be involved in this process. AFTERCARE APPOINTMENTS: * Please call your insurance company prior to your scheduled appointment to confirm your aftercare providers are covered. Take your insurance information to your appointments. WHO TO CALL AND WHEN: Medical Emergencies: For questions or emergencies related to your hospital stay, please contact the Inpatient Behavioral Health Unit at [phone]. A field engineer is on-call 26/03 for the Behavioral Health Unit for emergencies At any time you feel your situation is an emergency, you may also call 911 immediately. Pending Studies at Discharge: No Stand-Alone Forms: My [facility] Medications and DC Order Prescriptions: New gabapentin 600 mg Tablet 600 mg PO TID 30 Days Qty: 90 RF: 0 propranolol 10 mg Tablet 10 mg PO BID PRN (Reason: anxiety) 30 Days Qty: 60 RF: 0 hydroxyzine HCl 25 mg Tablet 25 mg PO DAILY PRN (Reason: anxiety) 30 Days Qty: 30 RF: 0 hydroxyzine HCl 50 mg tablet 50 mg PO HS PRN (Reason: insomnia) 30 Days Qty: 15 RF: 0 mirtazapine 7.5 mg tablet 7.5 mg PO HS 30 Days Qty: 30 RF: 0 Continued ATORVASTATIN (LIPITOR) 10 MG tablet 10 mg PO QAM Qty: 0 RF: 0 losartan 25 mg Tablet 25 mg PO DAILY RF: 0 zolpidem 12.5 mg Tablet,Ext Release Multiphase 12.5 mg PO HS RF: 0 Trintellix 10 mg Tablet 10 mg PO QAM RF: 0 Discontinued alprazolam 0.5 mg Tablet 0.5 mg PO Q8H PRN (Reason: Anxiety) RF: 0 aripiprazole 5 mg Tablet 5 mg PO QAM RF: 0 aripiprazole 2 mg Tablet 2 mg PO QAM RF: 0 Discharge Orders: Discharge Order (Routine); Ordered 01/20/22 Ordered By: Maria Del Carmen Lam Admission Data Admit Date/Time: 01/12/22 20:27 Attending Provider: Maria Del Carmen Lam Admit Provider: Jovana Omalley Primary Care Provider: PCP,NO Other Interventions: Discharge Summary Assessment (RN) Last Done: 01/20/22 15:04 Coding Level of Care Code 24400 D/C day mgmt > 30 min Diagnoses Recurrent severe major depressive disorder with anxiety F33.2; F41.9 Depression F32.A Depression Type: unspecified Anxiety F41.9 Time Spent (min) 45
[2022-01-20] MEDS ORDERED: DESTROY THIS MEDICATION ONE (15:34)
== END 2022-01-20 16:05 | disposition home or self-care (01) | DRG 885 ==
LOC: ED 14:44 → 3S 20:27 → SUATTDRO 20:27